=== PATIENT | male | born 1950 | race African-American/Black ===

== ENCOUNTER 2020-01-03 12:21 | Emergency (ER) | payer MEDICARE, OTHER ==
[~2020-01-03] VITALS: Ht 182.9 cm; Wt 100.0 kg
[~2020-01-03 12:21] MED LIST: AMLO5TAB4 PO; ASPI-482 PO; ATOR40TA PO; CARV25TA PO; CLON0.3T PO; CLOP75TA PO; HYDR-2145 PO; IPRA3AMP29 NEB; LATA2.5D3 EACHEYE; LISI-130 PO; OSEL30CA PO; POTA20TA4 PO; TRAM1TAB4 PO; TRAM50TA PO
[2020-01-03 12:59] LABS: BASO % 1 % (0-3); EOS # 0.1 x10^3/uL (0.0-0.7); EOS % 2 % (0-3); HEMATOCRIT 32.8 % (39.0-53.0); HEMOGLOBIN 11.4 g/dL (13.0-17.5); LYMPH # 0.8 x10^3/uL (1.0-4.8); LYMPH % 21 % (24-48); MEAN CORPUSCULAR HEMOGLOBIN 31 pg (25-35); MEAN CORPUSCULAR HGB CONC 35 g/dL (31-37); MEAN CORPUSCULAR VOLUME 89 fL (79-100); MONO # 0.3 x10^3/uL (0.0-1.1); MONO % 9 % (0-9); NEUT # 2.6 x10^3/uL (1.8-7.7); NEUT % 68 % (31-73); PLATELET COUNT 160 x10^3/uL (140-400); RED BLOOD COUNT 3.67 x10^6/uL (4.30-5.70); WHITE BLOOD COUNT 3.8 x10^3/uL (4.0-11.0)
[2020-01-03 13:12] LABS: CALCIUM 8.4 mg/dL (8.5-10.1); CREATININE 1.8 mg/dL (0.7-1.3); GFR 45.5; POTASSIUM 3.3 mmol/L (3.5-5.1)
[2020-01-03 13:13] LABS: PROTHROMBIN TIME PATIENT 14.3 SEC (11.7-14.0)
[2020-01-03 13:19] LABS: ALBUMIN 2.9 g/dL (3.4-5.0); ALBUMIN/GLOBULIN RATIO 0.9 (1.0-1.7); MAGNESIUM 1.8 mg/dL (1.8-2.4); TOTAL BILIRUBIN 0.5 mg/dL (0.2-1.0); TOTAL PROTEIN 6.3 g/dL (6.4-8.2)
[2020-01-03] MEDS ORDERED: POTASSIUM CHLORIDE 20 MEQ TABLET.ER. PO ONE (13:45)
[2020-01-03] MEDS ORDERED: IV NORMAL SALINE 500ML BAG 500 ML IV ONE (13:45)
[2020-01-03 14:00] VITALS: BP 127/72
--- NOTE | 2020-01-03 14:03 | PHYS DOC ---
Past Medical History Past Medical History: CVA, High Cholesterol, Heart Disease, Hypertension, Stroke Additional Past Medical Histor: stroke 10years ago with right sided deficit. Past Surgical History: No Surgical History Smoking Status: Never Smoker Alcohol Use: None Drug Use: None General Adult EDM: Chief Complaint: WEAKNESS/GENERALIZED HPI: HPI: Patient is a 69 year old male who was brought here by EMS from home due to generalized weakness. Patient has a history of stroke, has right-sided residual deficits and slow speech. Patient said for the last few day he did not feel well, feels weak. He has history of hypertension on medication for. Patient said today he was trying to get out of his bed when he stood up he feels weak and lost his balance and fell back onto his bed. No head or neck injury. Patient denies any pain anywhere. His family checked his blood pressure and it was low 80/40. Therefore EMS was called to take him here for evaluation. Patie nt denies any cough or fever, no chest pain, no abdominal pain, no nausea vomiting, no diarrhea. Patient said he had not been eating much lately. Review of Systems: Review of Systems: Constitutional: Denies fever or chills. Positive for generalized weakness Eyes: Denies change in visual acuity. [] HENT: Denies nasal congestion or sore throat. [] Respiratory: Denies cough or shortness of breath. [] Cardiovascular: Denies chest pain or edema. [] GI: Denies abdominal pain, nausea, vomiting, bloody stools or diarrhea. [] : Denies dysuria. [] Musculoskeletal: Denies back pain or joint pain. [] Integument: Denies rash. [] Neurologic: Denies headache, focal weakness or sensory changes. [] Endocrine: Denies polyuria or polydipsia. [] Lymphatic: Denies swollen glands. [] Psychiatric: Denies depression or anxiety. [] Heart Score: Risk Factors: Risk Factors: DM, Current or recent (<one month) smoker, HTN, HLP, family history of CAD, obesity. Risk Scores: Score 0 - 3: 2.5% MACE over next 6 weeks - Discharge Home Score 4 - 6: 20.3% MACE over next 6 weeks - Admit for Clinical Observation Score 7 - 10: 72.7% MACE over next 6 weeks - Early Invasive Strategies Current Medications: Current Medications Medications (Trade) Dose Ordered Sig/Shyla Start Time Stop Time Status Last Admin Dose Admin Potassium Chloride (Klor-Con) 40 meq 1X ONCE 01/03/20 13:45 01/03/20 13:46 DC 01/03/20 13:47 40 MEQ Sodium Chloride 500 ml @ 500 mls/hr 1X ONCE 01/03/20 13:45 01/03/20 14:44 01/03/20 13:39 500 MLS/HR Allergies: Allergies: Allergies Coded Allergies Type Severity Reaction Last Updated Verified No Known Drug Allergies 12/29/15 No Physical Exam: PE: Constitutional: Well developed, well nourished, no acute distress, non-toxic appearance. [] HENT: Normocephalic, atraumatic, bilateral external ears normal, oropharynx dry, no oral exudates, nose normal. [] Eyes: PERRLA, EOMI, conjunctiva normal, no discharge. [] Neck: Normal range of motion, no tenderness, supple, no stridor. [] Cardiovascular:Heart rate regular rhythm, no murmur [] Lungs & Thorax: Bilateral breath sounds clear to auscultation [] Abdomen: Bowel sounds normal, soft, no tenderness, no masses, no pulsatile masses. [] Skin: Warm, dry, no erythema, no rash. [] Back: No tenderness, no CVA tenderness. [] Extremities: No tenderness, no cyanosis, no clubbing, ROM intact, no edema. [] Neurologic: Alert and oriented X 3, right side feels weaker than left side which is chronic. His speech was slow. Psychologic: Affect normal, judgement normal, mood normal. [] Current Patient Data: Labs: Laboratory Tests Test 01/03/20 12:45 White Blood Count 3.8 x10^3/uL (4.0-11.0) L Red Blood Count 3.67 x10^6/uL (4.30-5.70) L Hemoglobin 11.4 g/dL (13.0-17.5) L Hematocrit 32.8 % (39.0-53.0) L Mean Corpuscular Volume 89 fL (79-100) Mean Corpuscular Hemoglobin 31 pg (25-35) Mean Corpuscular Hemoglobin Concent 35 g/dL (31-37) Red Cell Distribution Width 13.0 % (11.5-14.5) Platelet Count 160 x10^3/uL (140-400) Neutrophils (%) (Auto) 68 % (31-73) Lymphocytes (%) (Auto) 21 % (24-48) L Monocytes (%) (Auto) 9 % (0-9) Eosinophils (%) (Auto) 2 % (0-3) Basophils (%) (Auto) 1 % (0-3) Neutrophils # (Auto) 2.6 x10^3/uL (1.8-7.7) Lymphocytes # (Auto) 0.8 x10^3/uL (1.0-4.8) L Monocytes # (Auto) 0.3 x10^3/uL (0.0-1.1) Eosinophils # (Auto) 0.1 x10^3/uL (0.0-0.7) Basophils # (Auto) 0.0 x10^3/uL (0.0-0.2) Prothrombin Time 14.3 SEC (11.7-14.0) H Prothrombin Time INR 1.2 (0.8-1.1) H Activated Partial Thromboplast Time 31 SEC (24-38) Sodium Level 141 mmol/L (136-145) Potassium Level 3.3 mmol/L (3.5-5.1) L Chloride Level 104 mmol/L (98-107) Carbon Dioxide Level 27 mmol/L (21-32) Anion Gap 10 (6-14) Blood Urea Nitrogen 20 mg/dL (8-26) Creatinine 1.8 mg/dL (0.7-1.3) H Estimated GFR (Cockcroft-Gault) 45.5 BUN/Creatinine Ratio 11 (6-20) Glucose Level 144 mg/dL (70-99) H Calcium Level 8.4 mg/dL (8.5-10.1) L Magnesium Level 1.8 mg/dL (1.8-2.4) Total Bilirubin 0.5 mg/dL (0.2-1.0) Aspartate Amino Transferase (AST) 14 U/L (15-37) L Alanine Aminotransferase (ALT) 10 U/L (16-63) L Alkaline Phosphatase 66 U/L (46-116) Troponin I Quantitative < 0.017 ng/mL (0.000-0.055) Total Protein 6.3 g/dL (6.4-8.2) L Albumin 2.9 g/dL (3.4-5.0) L Albumin/Globulin Ratio 0.9 (1.0-1.7) L Laboratory Tests 01/03/20 12:45 Laboratory Tests 01/03/20 12:45 Vital Signs: Vital Signs Date Time Temp Pulse Resp B/P (MAP) Pulse Ox O2 Delivery O2 Flow Rate FiO2 01/03/20 12:51 72 16 97 01/03/20 12:30 98.8 95/51 (66) Room Air 98.8 EKG: EKG: EKG was done at 1229 heart rate of 72 bpm, normal sinus rhythm, no ST segment elevation [] Radiology/Procedures: Radiology/Procedures: [] Course & Med Decision Making: Course & Med Decision Making Pertinent Labs and Imaging studies reviewed. (See chart for details) Patient is a 69-year-old male who was found to be dehydrated, potassium level was low. Patient was given 1 L normal saline in the ER, 40 mEq of potassium. Patient was doing much better, patient was discharged home in stable condition. Dragon Disclaimer: Dragon Disclaimer: This electronic medical record was generated, in whole or in part, using a voice recognition dictation system. Departure Departure Impression: Primary Impression: Dehydration Additional Impression: Hypokalemia Disposition: 01 DC HOME SELF CARE/HOMELESS Condition: IMPROVED Referrals: ZENA AUSTIN MD (PCP) FOLLOW UP WITH YOUR DOCTOR NEXT WEEK FOR REEVALUATION. Patient Instructions: Dehydration, Adult, Hypokalemia Additional Instructions: Thank you for visiting our Emergency Department. We appreciate you trusting us with your care. If any additional problems come up don't hesitate to return to visit us. Please follow up with your primary care provider so they can plan additional care if needed and know about the problem that you had. If symptoms worsen come back to the Emergency Department. Any concerning symptoms that start such as chest pain, shortness of air, weakness or numbness on one side of the body, running high fevers or any other concerning symptoms return to the ER. AUDREY MAJOR DO Jan 03, 2020 14:02
== END 2020-01-03 14:10 | disposition home or self-care (01) ==
LOC: ER 12:21
DX: E86.0 Dehydration (principal); E87.6 Hypokalemia; I11.9 Hypertensive heart disease without heart failure; E78.00 Pure hypercholesterolemia, unspecified; Z86.73 Personal history of transient ischemic attack (TIA), and cerebral infarction without residual deficits
CPT/HCPCS: 36415; 80053; 83735; 84484; 85025; 85610; 85730; 96360; 99284; J7040

== ENCOUNTER 2020-06-03 18:09 | Emergency (ER) | payer MEDICARE ==
[~2020-06-03] VITALS: Ht 165.1 cm; Wt 89.0 kg
[2020-06-03 18:23] VITALS: BP 141/69
[2020-06-03] MEDS ORDERED: IV NORMAL SALINE 1000ML BAG 1,000 ML IV SCH (19:30)
--- NOTE | 2020-06-03 19:59 | EKG ---
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
[2020-06-03 20:03] LABS: BILIRUBIN,URINE SMALL (NEG); CLARITY,URINE CLEAR; COLOR,URINE AMBER; NITRITE,URINE POSITIVE (NEG); PH,URINE 6.5 (<5.0-8.0); PROTEIN,URINE 30 mg/dL (NEG-TRACE)
[2020-06-03 20:03] LABS: BASO % 0 % (0-3); EOS % 1 % (0-3); HEMATOCRIT 37.9 % (39.0-53.0); HEMOGLOBIN 13.2 g/dL (13.0-17.5); LYMPH # 0.6 x10^3/uL (1.0-4.8); LYMPH % 15 % (24-48); MEAN CORPUSCULAR HEMOGLOBIN 32 pg (25-35); MEAN CORPUSCULAR HGB CONC 35 g/dL (31-37); MEAN CORPUSCULAR VOLUME 91 fL (79-100); MONO # 0.4 x10^3/uL (0.0-1.1); MONO % 9 % (0-9); NEUT # 3.3 x10^3/uL (1.8-7.7); NEUT % 76 % (31-73); PLATELET COUNT 164 x10^3/uL (140-400); RED BLOOD COUNT 4.18 x10^6/uL (4.30-5.70); RED CELL DISTRIBUTION WIDTH 13.9 % (11.5-14.5); WHITE BLOOD COUNT 4.4 x10^3/uL (4.0-11.0)
[2020-06-03 20:10] LABS: RBC,URINE 0 /HPF (0-2); WBC,URINE 0 /HPF (0-4)
[2020-06-03 20:11] LABS: BACTERIA,URINE FEW /HPF (0-FEW)
[2020-06-03 20:25] LABS: CALCIUM 8.3 mg/dL (8.5-10.1); CREATININE 1.3 mg/dL (0.7-1.3); POTASSIUM 3.3 mmol/L (3.5-5.1)
--- NOTE | 2020-06-03 20:26 | RAD ---
Examination: Frontal view of the abdomen HISTORY: History of abdominal pain COMPARISON: None available Findings/ impression: Mild air distended bowel loops identified in the mid abdomen could be ileus or obstruction. Moderate amount of stool identified in the rectum could be constipation or fecal impaction. Consider CT for fu rther evaluation. Electronically signed by: Benitez Wynne MD (06/03/2020 8:24 PM) [id number]
[2020-06-03 20:39] LABS: ALBUMIN 3.6 g/dL (3.4-5.0); ALBUMIN/GLOBULIN RATIO 1.2 (1.0-1.7); TOTAL PROTEIN 6.7 g/dL (6.4-8.2)
--- NOTE | 2020-06-03 20:40 | PHYS DOC ---
Past Medical History Past Medical History: CVA, High Cholesterol, Heart Disease, Hypertension, Stroke Additional Past Medical Histor: stroke 10years ago with right sided deficit. Past Surgical History: No Surgical History Smoking Status: Never Smoker Alcohol Use: None Drug Use: None Adult General Chief Complaint Chief Complaint: WEAKNESS/GENERALIZED HPI HPI Patient is a 70 year old male with a past history of CVA, hypertension hyperlipidemia presenting the emergency department complaint of new onset weakness. Patient states that this morning he woke up and he was having difficulty standing because he is having weakness in bilateral lower extremities. Patient denies weakness in 1 to her side. States that he has been intermittent since that time. Denies any fever or chills. Denies any chest pain or shortness of breath Review of Systems Review of Systems Constitutional: Denies fever or chills [] Eyes: Denies change in visual acuity, redness, or eye pain [] HENT: Denies nasal congestion or sore throat [] Respiratory: Denies cough or shortness of breath [] Cardiovascular: No additional information not addressed in HPI [] GI: Denies abdominal pain, nausea, vomiting, bloody stools or diarrhea [] : Denies dysuria or hematuria [] Musculoskeletal: Denies back pain or joint pain [] Integument: Denies rash or skin lesions [] Neurologic: Denies headache, focal weakness or sensory changes [] Endocrine: Denies polyuria or polydipsia [] All other systems were reviewed and found to be within normal limits, except as documented in this note. Current Medications Current Medications Current Medications Medications (Trade) Dose Ordered Sig/Shyla Start Time Stop Time Status Last Admin Dose Admin Sodium Chloride 1,000 ml @ 1,000 mls/hr Q1H 06/03/20 19:30 06/03/20 20:29 DC 06/03/20 19:50 1,000 MLS/HR Allergies Allergies Allergies Coded Allergies Type Severity Reaction Last Updated Verified No Known Drug Allergies 12/29/15 No Physical Exam Physical Exam Constitutional: Well developed, well nourished, no acute distress, non-toxic appearance. [] HENT: Normocephalic, atraumatic, bilateral external ears normal, oropharynx moist, no oral exudates, nose normal. [] Eyes: PERRLA, EOMI, conjunctiva normal, no discharge. [] Neck: Normal range of motion, no tenderness, supple, no stridor. [] Cardiovascular:Heart rate regular rhythm, no murmur [] Lungs & Thorax: Bilateral breath sounds clear to auscultation [] Abdomen: Bowel sounds normal, soft, no tenderness, no masses, no pulsatile masses. [] Skin: Warm, dry, no erythema, no rash. [] Back: No tenderness, no CVA tenderness. [] Extremities: No tenderness, no cyanosis, no clubbing, ROM intact, no edema. [] Neurologic: Alert and oriented X 3, normal motor function, normal sensory function, no focal deficits noted. [] Psychologic: Affect normal, judgement normal, mood normal. [] Current Patient Data Vital Signs Vital Signs Date Time Temp Pulse Resp B/P (MAP) Pulse Ox O2 Delivery O2 Flow Rate FiO2 06/03/20 18:23 98.2 76 20 141/69 (93) 98 Room Air 98.2 Lab Values Laboratory Tests Test 06/03/20 19:41 06/03/20 19:48 Urine Collection Type Unknown Urine Color [place] Urine Clarity Clear Urine pH 6.5 (<5.0-8.0) Urine Specific [place] 1.020 (1.000-1.030) Urine Protein 30 mg/dL (NEG-TRACE) Urine Glucose (UA) Negative mg/dL (NEG) Urine Ketones (Stick) 15 mg/dL (NEG) Urine Blood Negative (NEG) Urine Nitrite Positive (NEG) Urine Bilirubin Small (NEG) Urine Urobilinogen Dipstick 4.0 mg/dL (0.2 mg/dL) Urine Leukocyte Esterase Negative (NEG) Urine RBC 0 /HPF (0-2) Urine WBC 0 /HPF (0-4) Urine Squamous Epithelial Cells Occ /LPF Urine Bacteria Few /HPF (0-FEW) White Blood Count 4.4 x10^3/uL (4.0-11.0) Red Blood Count 4.18 x10^6/uL (4.30-5.70) L Hemoglobin 13.2 g/dL (13.0-17.5) Hematocrit 37.9 % (39.0-53.0) L Mean Corpuscular Volume 91 fL (79-100) Mean Corpuscular Hemoglobin 32 pg (25-35) Mean Corpuscular Hemoglobin Concent 35 g/dL (31-37) Red Cell Distribution Width 13.9 % (11.5-14.5) Platelet Count 164 x10^3/uL (140-400) Neutrophils (%) (Auto) 76 % (31-73) H Lymphocytes (%) (Auto) 15 % (24-48) L Monocytes (%) (Auto) 9 % (0-9) Eosinophils (%) (Auto) 1 % (0-3) Basophils (%) (Auto) 0 % (0-3) Neutrophils # (Auto) 3.3 x10^3/uL (1.8-7.7) Lymphocytes # (Auto) 0.6 x10^3/uL (1.0-4.8) L Monocytes # (Auto) 0.4 x10^3/uL (0.0-1.1) Eosinophils # (Auto) 0.0 x10^3/uL (0.0-0.7) Basophils # (Auto) 0.0 x10^3/uL (0.0-0.2) Sodium Level 144 mmol/L (136-145) Potassium Level 3.3 mmol/L (3.5-5.1) L Chloride Level 108 mmol/L (98-107) H Carbon Dioxide Level 29 mmol/L (21-32) Anion Gap 7 (6-14) Blood Urea Nitrogen 14 mg/dL (8-26) Creatinine 1.3 mg/dL (0.7-1.3) Estimated GFR (Cockcroft-Gault) 66.0 BUN/Creatinine Ratio 11 (6-20) Glucose Level 89 mg/dL (70-99) Calcium Level 8.3 mg/dL (8.5-10.1) L Total Bilirubin 1.0 mg/dL (0.2-1.0) Aspartate Amino Transferase (AST) 18 U/L (15-37) Alanine Aminotransferase (ALT) 11 U/L (16-63) L Alkaline Phosphatase 61 U/L (46-116) Creatine Kinase 258 U/L (39-308) Total Protein 6.7 g/dL (6.4-8.2) Albumin 3.6 g/dL (3.4-5.0) Albumin/Globulin Ratio 1.2 (1.0-1.7) Lipase 128 U/L (73-393) Laboratory Tests 06/03/20 19:48 Laboratory Tests 06/03/20 19:48 EKG EKG [] Radiology/Procedures Radiology/Procedures [] Course & Med Decision Making Course & Med Decision Making Pertinent Labs and Imaging studies reviewed. (See chart for details) 70m male nonspecific weakness in bilateral lower extremities less likely CVA versus concern for sepsis or other generalized metabolic disorder. Labs reviewed and patient noted to have nitrates in the urine consistent with a urinary tract infection. CT scan of the head negative for any significant acute intracranial abnormalities. At this time will discharge home with course of antibiotics for urinary tract infection as is likely the cause of the patient's weakness Dragon Disclaimer Dragon Disclaimer This electronic medical record was generated, in whole or in part, using a voice recognition dictation system. Departure Departure Impression: Primary Impression: UTI (urinary tract infection) Disposition: HOME / SELF CARE / HOMELESS Condition: GOOD Referrals: ZENA AUSTIN MD (PCP) Patient Instructions: Urinary Tract Infection Additional Instructions: EMERGENCY DEPARTMENT GENERAL DISCHARGE INSTRUCTIONS Thank you for coming to [facility] Emergency Department (ED) today and trusting us with you care. We trust that you had a positive experience in our Emergency Department. If you wish to speak to the department management, you may call the Director at [phone]. YOUR FOLLOW UP INSTRUCTIONS ARE FOLLOWS: 1. Do you have a private Doctor? If you do not have a private doctor, please ask for a resource list of physicians or clinics that may be able to assist you with follow up care. 2. The Emergency Physicain has interpreted your x-rays. The X-Ray specialist will also review them. If there is a change in the findings, you will be notified in 48 hours when at all possible. 3. A lab test or culture has been done, your results will be reviewed and you will be notified if you need a change in treatment. ADDITIONAL INSTRUCTIONS AND INFORMATION: 1. Your care today has been supervised by a physician who is specially trained in emergency care. Many problems require more than one evaluation for a complete diagnosis and treatment. We recommend that you schedule your follow up appointment as recommended to ensure complete treatment of you illness or injury. If you are unable to obtain follow up care and continue to have a problem, or if your condition worsens, we recommend that you return to the ED. 2. We are not able to safely determine your condition over the phone nor are we able to give sound medical advice over the phone. For these safety reasons, if you call for medical advice we will ask you to come to the ED for further evaluation. 3. If you have any questions regarding these discharge instructions please call the ED at [phone]. SAFETY INFORMATION: In the interest of safety, wellness, and injury prevention; we encourage you to wear your sealbelt, if you smoke; quite smoking, and we encourage family to use a protective helmet for bicycling and other sporting events that present an increased risk for head injury. IF YOUR SYMPTOMS WORSEN OR NEW SYMPTOMS DEVELOP, OR YOU HAVE CONCERNS ABOUT YOUR CONDITION; OR IF YOUR CONDITION WORSENS WHILE YOU ARE WAITING FOR YOUR FOLLOW UP APPOINTMENT; EITHER CONTACT YOUR PRIMARY CARE DOCTOR, THE PHYSICIAN WHOSE NAME AND NUMBER YOU WERE GIVEN, OR RETURN TO THE ED IMMEDIATELY. Scripts Cephalexin (CEPHALEXIN) 500 Mg Capsule 1 CAP PO QID for 10 Days, #40 CAP Prov: MIKE FERNANDEZ MD 06/03/20 MIKE FERNANDEZ MD Jun 03, 2020 20:40
--- NOTE | 2020-06-03 21:36 | RAD ---
CT HEAD INDICATION: Reason: weakness / Spl. Instructions: / History: COMPARISON: 01/31/2019. Exposure: One or more of the following individualized dose reduction techniques were utilized for thi s examination: 1. Automated exposure control 2. Adjustment of the mA and/or kV according to patient size 3. Use of iterative reconstruction technique TECHNIQUE: 5 mm contiguous axial images were obtained from the skull base to the vertex in both bone and soft tissue algorithm. FINDINGS: Mild bilateral periventricular white matter hypodensities likely chronic small ischemic disease. No evidence of acute intracranial hemorrhage. No extra-axial fluid collections. No mass effect or midline shift. Ventricular size is appropriate. Basal cisterns are patent. No fractures identified.Stanton-white differentiation is preserved.Globes and orbits are within normal l imits. Paranasal sinuses and mastoid air cells are clear. IMPRESSION: No acute intracranial findings. Electronically signed by: Benitez Wynne MD (06/03/2020 9:33 PM) [id number]
[2020-06-03] MEDS ORDERED: CEPH500C PO (22:01)
== END 2020-06-03 22:46 | disposition home or self-care (01) ==
LOC: ER 18:09
DX: N39.0 Urinary tract infection, site not specified (principal); R53.1 Weakness; E78.00 Pure hypercholesterolemia, unspecified; I10 Essential (primary) hypertension; I25.2 Old myocardial infarction; Z86.73 Personal history of transient ischemic attack (TIA), and cerebral infarction without residual deficits; Z98.890 Other specified postprocedural states
CPT/HCPCS: 36415; 70450; 74018; 80053; 81001; 82550; 83690; 85025; 93005; 96360; 99285; J7030

== ENCOUNTER 2020-09-11 17:12 | Observation (INO) | payer MEDICARE ==
[~2020-09-11] VITALS: Ht 167.6 cm; Wt 81.4 kg
[~2020-09-11 17:12] MED LIST changes: +CEPH500C PO
--- NOTE | 2020-09-11 18:18 | RAD ---
Exam: Chest one view INDICATION: Generalized weakness TECHNIQUE: Frontal view of the chest Comparisons: 01/31/2019 FINDINGS: Heart is mildly enlarged. Pulmonary vessels are within normal limits. The lung and pleural spaces are clear. IMPRESSION: No acute cardiopulmonary process. Electronically signed by: Ellen Watson MD (09/11/2020 6:16 PM) AYESHA
[2020-09-11 18:19] LABS: BASO % 0 % (0-3); EOS # 0.1 x10^3/uL (0.0-0.7); EOS % 1 % (0-3); HEMATOCRIT 38.4 % (39.0-53.0); HEMOGLOBIN 12.8 g/dL (13.0-17.5); LYMPH # 0.7 x10^3/uL (1.0-4.8); LYMPH % 10 % (24-48); MEAN CORPUSCULAR HEMOGLOBIN 31 pg (25-35); MEAN CORPUSCULAR HGB CONC 33 g/dL (31-37); MEAN CORPUSCULAR VOLUME 93 fL (79-100); MONO # 0.4 x10^3/uL (0.0-1.1); MONO % 6 % (0-9); NEUT # 5.5 x10^3/uL (1.8-7.7); NEUT % 83 % (31-73); PLATELET COUNT 152 x10^3/uL (140-400); RED BLOOD COUNT 4.14 x10^6/uL (4.30-5.70); WHITE BLOOD COUNT 6.7 x10^3/uL (4.0-11.0)
--- NOTE | 2020-09-11 18:25 | EKG ---
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
--- NOTE | 2020-09-11 18:25 | EKG ---
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
[2020-09-11 18:27] LABS: ALBUMIN 2.7 g/dL (3.4-5.0); ALBUMIN/GLOBULIN RATIO 1.1 (1.0-1.7); GFR 89.4; MAGNESIUM 1.6 mg/dL (1.8-2.4); TOTAL BILIRUBIN 0.9 mg/dL (0.2-1.0); TOTAL PROTEIN 5.2 g/dL (6.4-8.2)
[2020-09-11 18:30] LABS: POTASSIUM 2.5 mmol/L (3.5-5.1)
[2020-09-11] MEDS ORDERED: MAGNESIUM SULFATE 2GM 50 ML IV ONE (18:45)
[2020-09-11] MEDS ORDERED: POTASSIUM CHLORIDE 20MEQ 100 ML IV ONE (18:45)
[2020-09-11] MEDS ORDERED: POTASSIUM CHLORIDE 20 MEQ TABLET.ER. PO ONE (18:45)
--- NOTE | 2020-09-11 18:47 | PHYS DOC ---
Past Medical History Past Medical History: CVA, High Cholesterol, Heart Disease, Hypertension, Stroke Additional Past Medical Histor: stroke 10years ago with right sided deficit. 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 The states that the left leg was giving out on him. Patient's states that his legs are more swollen than usual. Patient's states that he has been off of his " water pills" for the past 2 months. Patient fell again today but did not hit his head and states ever since the fall today he has not been wanting to use his left lower leg. Patient denies any kind of pain. He states that he just generalized weak. Patient denies chest pain, shortness of air, abdominal pain, nausea, vomiting, diarrhea, fever, cough, dizziness, headache, numbness or tingling. He has a history of hypertension, high cholesterol, stroke, heart disease. 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 [] Eyes: Denies change in visual acuity. [] HENT: Denies nasal congestion or sore throat. [] Respiratory: Denies cough or shortness of breath. [] Cardiovascular: Denies chest pain or + bilateral lower leg edema. [] GI: Denies abdominal pain, nausea, vomiting, bloody stools or diarrhea. [] : Denies dysuria. [] Musculoskeletal: Denies back pain or joint pain. + Frequent falls [] Integument: Denies rash. [] Neurologic: Denies headache, focal weakness or sensory changes. + Left leg weakness [] Endocrine: Denies polyuria or polydipsia. [] Lymphatic: Denies swollen glands. [] Psychiatric: Denies depression or anxiety. [] (JOSE C[employer]OSO [employer]ACH[employer] TENDER) Heart Score: C/O Chest Pain: No HEART Score for Chest Pain: HEART Score for Chest Pain Response (Comments) Value History Slighlty/Non-Suspicious 0 ECG Nonspecific Repolarizatio 1 Age > 65 2 Risk Factors 1 or 2 Risk Factors 1 Troponin < Normal Limit 0 Total 4 Risk Factors: Risk Factors: DM, Current or recent (<one month) smoker, HTN, HLP, family history of CAD, obesity. Risk Scores: Score 0 - 3: 2.5% MACE over next 6 weeks - Discharge Home Score 4 - 6: 20.3% MACE over next 6 weeks - Admit for Clinical Observation Score 7 - 10: 72.7% MACE over next 6 weeks - Early Invasive Strategies ([facility],JOSE M WO[employer] M[employer]ING MACHINE TENDER) Allergies: Allergies: Allergies Coded Allergies Type Severity Reaction Last Updated Verified No Known Drug Allergies 12/29/15 No ([facility],JOSE M WO[employer] M[employer]ING MACHINE TENDER) Physical Exam: PE: Constitutional: Well developed, well nourished, no acute distress, non-toxic appearance. [] HENT: Normocephalic, atraumatic, bilateral external ears normal, oropharynx moist, no oral exudates, nose normal. [] Eyes: PERRLA, EOMI, conjunctiva normal, no discharge. [] Neck: Normal range of motion, no tenderness, supple, no stridor. [] Cardiovascular:Heart rate regular rhythm, no murmur [] Lungs & Thorax: Bilateral breath sounds clear to auscultation [] Abdomen: Bowel sounds normal, soft, no tenderness, no masses, no pulsatile masses. [] Skin: Warm, dry, no erythema, no rash. [] Back: No tenderness, no CVA tenderness. [] Extremities: No tenderness, no cyanosis, no clubbing, left ROM not intact, 3+ edema. [] Neurologic: Alert and oriented X 3, normal motor function, normal sensory function, no focal deficits noted. [] Psychologic: Affect normal, judgement normal, mood normal. [] ([facility],JOSE M [employer] M[employer]ING MACHINE TENDER) Current Patient Data: Labs: Laboratory Tests Test 09/11/20 17:55 White Blood Count 6.7 x10^3/uL (4.0-11.0) Red Blood Count 4.14 x10^6/uL (4.30-5.70) L Hemoglobin 12.8 g/dL (13.0-17.5) L Hematocrit 38.4 % (39.0-53.0) L Mean Corpuscular Volume 93 fL (79-100) Mean Corpuscular Hemoglobin 31 pg (25-35) Mean Corpuscular Hemoglobin Concent 33 g/dL (31-37) Red Cell Distribution Width 13.0 % (11.5-14.5) Platelet Count 152 x10^3/uL (140-400) Neutrophils (%) (Auto) 83 % (31-73) H Lymphocytes (%) (Auto) 10 % (24-48) L Monocytes (%) (Auto) 6 % (0-9) Eosinophils (%) (Auto) 1 % (0-3) Basophils (%) (Auto) 0 % (0-3) Neutrophils # (Auto) 5.5 x10^3/uL (1.8-7.7) Lymphocytes # (Auto) 0.7 x10^3/uL (1.0-4.8) L Monocytes # (Auto) 0.4 x10^3/uL (0.0-1.1) Eosinophils # (Auto) 0.1 x10^3/uL (0.0-0.7) Basophils # (Auto) 0.0 x10^3/uL (0.0-0.2) Sodium Level 144 mmol/L (136-145) Potassium Level 2.5 mmol/L (3.5-5.1) *L Chloride Level 111 mmol/L (98-107) H Carbon Dioxide Level 23 mmol/L (21-32) Anion Gap 10 (6-14) Blood Urea Nitrogen 9 mg/dL (8-26) Creatinine 1.0 mg/dL (0.7-1.3) Estimated GFR (Cockcroft-Gault) 89.4 BUN/Creatinine Ratio 9 (6-20) Glucose Level 92 mg/dL (70-99) Calcium Level 7.0 mg/dL (8.5-10.1) L Magnesium Level 1.6 mg/dL (1.8-2.4) L Total Bilirubin 0.9 mg/dL (0.2-1.0) Aspartate Amino Transferase (AST) 26 U/L (15-37) Alanine Aminotransferase (ALT) 16 U/L (16-63) Alkaline Phosphatase 58 U/L (46-116) Total Protein 5.2 g/dL (6.4-8.2) L Albumin 2.7 g/dL (3.4-5.0) L Albumin/Globulin Ratio 1.1 (1.0-1.7) Laboratory Tests 09/11/20 17:55 Laboratory Tests 09/11/20 17:55 Vital Signs: Vital Signs Date Time Temp Pulse Resp B/P (MAP) Pulse Ox O2 Delivery O2 Flow Rate FiO2 09/11/20 17:28 79 18 159/68 (98) 96 Room Air 09/11/20 17:19 98.2 98.2 (JOSE CARDOSO APRN) EKG: EK and read by Dr. Dougherty is sinus rhythm and no STEMI (JOSE CARDOSO APRN) Radiology/Procedures: Radiology/Procedures: [] Impression: [facility] [address] [place] [address] IMAGING REPORT Signed PATIENT: JAYE NAVARRETE HACCOUNT: [id number] : 1950 LOCATION: ER AGE: 70 SEX: M EXAM STATUS: PRE ER ORD. PHYSICIAN: JOSE CARDOSO APRN REASON: generalized weakness PROCEDURE: PORTABLE CHEST 1V Exam: Chest one view INDICATION: Generalized weakness TECHNIQUE: Frontal view of the chest Comparisons: 01/31/2019 FINDINGS: Heart is mildly enlarged. Pulmonary vessels are within normal limits. The lung and pleural spaces are clear. IMPRESSION: No acute cardiopulmonary process. Electronically signed by: Ellen Farris MD (09/11/2020 6:16 PM) [facility] DICTATED and SIGNED BY: ELLEN FARRIS MD DATE: 09/11/20 [id number] 0 (JOSE CARDOSO APRN) Course & Med Decision Making: Course & Med Decision Making Pertinent Labs and Imaging studies reviewed. (See chart for details) See HPI. Alert and oriented x4. Ambulatory steady gait. Speaks in full clear sentences. Patient is vaccinated. Lungs are clear in upper lobes and diminished in lower lobes. Abdomen soft and nontender. Bilateral lower leg edema 3+. Chest x-ray is clear. I ordered magnesium and potassium for the patient. It was marked he is admitted to Dr. Austin [] (JOSE CARDOSO APRN) Dragon Disclaimer: Dragon Disclaimer: This electronic medical record was generated, in whole or in part, using a voice recognition dictation system. (JOSE CARDOSO APRN) Departure Departure Impression: Primary Impression: Hypokalemia Additional Impressions: Hypomagnesemia Weakness Frequent falls Disposition: ADMITTED INPATIENT Admitting Physician: Bertha Austin (JOSE CARDOSO APRN) Condition: STABLE Referrals: BERTHA AUSTIN MD (PCP) Attending Signature Attending Signature I have reviewed the PA/MEDICINE AND HEALTH SERVICE MANAGER's note and plan of care. I was available for consultation as needed during the patient's visit in the emergency department. I agree with the clinical impression, plan, and disposition. (SCOTT AVALOS DO) JOSE CARDOSO APRN Sep 11, 2020 18:47 SCOTT AVALOS DO Sep 11, 2020 22:55
--- NOTE | 2020-09-11 18:55 | RAD ---
Exam: Pelvis with bilateral hips INDICATION: Fall, heart the left legs TECHNIQUE: Frontal view of pelvis with bilateral frog-leg lateral views of the hips. Comparisons: None FINDINGS: Mild osteoarthritic change at the hip joints bilaterally greater on the left. No acute fracture is se en. Bone mineralization is normal. Large amount stool noted at the rectum. IMPRESSION: No acute osseous abnormality identified. If the patient is acutely unable to bear weight MRI to rule out occult hip fracture is recommended. Electronically signed by: Ellen Watson MD (09/11/2020 6:53 PM) [facility]
--- NOTE | 2020-09-11 19:28 | RAD ---
Exam: CT head INDICATION: Weakness TECHNIQUE: Sequential axial images through the head were obtained without the administration of IV co ntrast. Exposure: One or more of the following in the visualized dose reduction techniques were utilized for this examination: 1. Automated exposure control 2. Adjustment of the MA and/or KV according to patient size 3. Use of iterative of reconstructive technique Comparisons: 06/03/2020 FINDINGS: No focal parenchymal lesion or hemorrhage is identified. There is no midline shift or sulcal effaceme nt. Patchy evidence in the periventricular white matter, similar to prior. No acute vascular territory in farction is identified. Stanton-white distinction is preserved. The ventricular system is within normal limits without compression hydrocephalus. The basal cisterns are well maintained. The visualized portions of the paranasal sinuses and mastoid air cells are well-pneumatized. No acute fractures. IMPRESSION: No acute intracranial abnormality. Electronically signed by: Ellen Watson MD (09/11/2020 7:26 PM) [facility]
[2020-09-11 20:48] LABS: BILIRUBIN,URINE NEGATIVE (NEG); CLARITY,URINE CLEAR; COLOR,URINE YELLOW; NITRITE,URINE NEGATIVE (NEG); PH,URINE 7.5 (<5.0-8.0); PROTEIN,URINE NEGATIVE (NEG-TRACE); UROBILINOGEN,URINE 0.2 mg/dL (0.2 mg/dL)
[2020-09-11 20:53] LABS: BACTERIA,URINE 0 /HPF (0-FEW); RBC,URINE OCC /HPF (0-2); WBC,URINE OCC /HPF (0-4)
--- NOTE | 2020-09-11 22:15 | NUR ---
[id number] Pt arrival to unit via ER cart at this time. Pt stated he was unable to walk or transfer his self from bed to bed by scooting over on his own. Pt transferred to unit bed with multiple staff help and max assist. Pt oriented to unit settings and routines and plan of care. Items and call light in reach. Admission questions completed. contacted for prn pain medication for left leg pain pt is complaining of. Pt states his left leg has hurt since he fell a few days ago prior to admission.
[2020-09-11 22:24] VITALS: BP 175/93
[2020-09-11] MEDS ORDERED: HYDROcodone/APAP 5/325MG 1 TAB TABLET PO PRN (23:15)
[2020-09-11] MEDS: LISINOPRIL 20 MG TABLET PO SCH (23:34)
[2020-09-11] MEDS: ATORVASTATIN CALCIUM 40 MG TABLET. PO SCH (23:34)
[2020-09-11] MEDS: LATANOPROST 0.005% OPHTH SOLUTION 2.5ML BOTTLE. OU SCH (23:35)
[2020-09-11] MEDS: cloNIDine HCL 0.3 MG TABLET PO SCH (23:35)
[2020-09-12] VITALS (7 sets, daily range): BP systolic 89–145; BP diastolic 43–84
[2020-09-12] MEDS: CLOPIDOGREL BISULFATE 75 MG TABLET PO SCH (06:13)
[2020-09-12 06:52] LABS: ALBUMIN 2.7 g/dL (3.4-5.0); ALBUMIN/GLOBULIN RATIO 0.9 (1.0-1.7); CALCIUM 7.9 mg/dL (8.5-10.1); CREATININE 1.3 mg/dL (0.7-1.3); POTASSIUM 3.1 mmol/L (3.5-5.1); TOTAL BILIRUBIN 0.7 mg/dL (0.2-1.0); TOTAL PROTEIN 5.7 g/dL (6.4-8.2)
[2020-09-12 07:03] LABS: CHOLESTEROL/HDL RATIO 3.4
[2020-09-12] MEDS: IPRATRPIUM/ALBUTEROL 0.5/2.5MG 3 ML NEBU. NEB SCH ×4 (07:45→21:53)
[2020-09-12] MEDS ORDERED: POTASSIUM CHLORIDE 20 MEQ TABLET.ER. PO ONE ×3 (08:15→16:45)
--- NOTE | 2020-09-12 08:57 | PDOC ---
Provider Note Date of Service: DATE: 09/12/20 TIME: 08:56 Provider Note Pt seen.H&P dictated.#[id number]. Justifications for Admission Other Justification ZENA AUSTIN MD Sep 12, 2020 08:57
[2020-09-12] MEDS: cloNIDine HCL 0.3 MG TABLET PO SCH ×3 (09:28→21:00)
[2020-09-12] MEDS: LISINOPRIL 20 MG TABLET PO SCH (09:29)
[2020-09-12] MEDS: POTASSIUM CHLORIDE 20 MEQ TABLET.ER. PO SCH (09:29)
[2020-09-12] MEDS: ASPIRIN ENTERIC COATED 81 MG TABLET.DR. PO SCH (09:29)
[2020-09-12] MEDS: hydroCHLOROthiazide 25 MG TABLET PO SCH (09:29)
[2020-09-12] MEDS ORDERED: methylPREDNISolone ACETATE 40 MG/ML VIAL. IM ONE (09:30)
[2020-09-12] MEDS ORDERED: BUPIVACAINE MPF 0.25% 10 ML VIAL. IJ ONE (09:30)
[2020-09-12] MEDS: CARVEDILOL 12.5 MG TABLET. PO SCH ×2 (09:30→17:07)
[2020-09-12] MEDS: ENOXAPARIN 40 MG/0.4 ML SYRINGE. SQ SCH (09:33)
--- NOTE | 2020-09-12 09:38 | HP ---
ADMIT DATE: 09/11/2020 LOCATION: Room 211. REASON FOR ADMISSION TO THE HOSPITAL: Weakness, hypokalemia, history of previous stroke. HISTORY OF PRESENT ILLNESS: The patient is a 70-year-old male patient who has a history of hypertension, previous stroke, mostly ambulates with a walker and he has been feeling weak with pain in the left leg, not able to get up, denies any injuries to that. The patient was brought to the hospital and x-ray did not show any fracture. CT scan negative for stroke and his potassium was low at 2.5. The patient was given IV potassium and fluids and admitted to the hospital. PAST MEDICAL HISTORY: 1. Hypertension. 2. Hyperlipidemia. 3. Stroke. 4. Chronic kidney disease. PAST SURGICAL HISTORY: None. ALLERGIES: None. MEDICATIONS: The patient is on: 1. Amlodipine 5 mg daily. 2. Aspirin 81 mg daily. 3. Atorvastatin 40 mg daily. 4. Coreg 25 mg twice a day. 5. Clonidine 0.3 three times a day. 6. Plavix 75 mg daily. 7. Hydrochlorothiazide 25 daily. 8. DuoNeb 4 times daily. 9. Lisinopril 40 mg daily. 10. Potassium 20 mEq daily. The patient's says he is not taking potassium lately. 11. 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 SOCIAL HISTORY: Denies smoking, alcohol, drug abuse. The patient is at walker and wheelchair level. REVIEW OF SYSTEMS: Denies any chest pain, shortness of breath. Complains of pain in the leg with generalized weakness. Denies any problems with urination. Rest of the 14 systems reviewed are negative. PHYSICAL EXAMINATION: VITAL SIGNS: At the time of admission shows temperature 98, pulse 81, respirations 18, blood pressure 167/76, 97 on room air. HEENT: Head is atraumatic. Pupils equal. Oral cavity, no congestion. NECK: Supple. Thyroid not enlarged. JVD not elevated. CHEST: Symmetrical. CARDIOVASCULAR: S1, S2. LUNGS: Clear to auscultation. ABDOMEN: Soft. No mass palpable. EXTERNAL GENITALIA: No Vásquez. Rectal deferred. EXTREMITIES: The patient has pain in the left leg, not able to lift off the bed. The patient had a previous right stroke, but is able to move the right leg more than the left leg. Cranial nerves intact. Upper extremities are normal. IMAGING DATA: CT scan shows no acute abnormality. X-ray of the pelvis, no fracture. Chest x-ray, negative. LABORATORY DATA: Shows a white count of 6, hemoglobin 13, platelets 152. Electrolytes show sodium 144, potassium 2.5, chloride 111, bicarbonate 23, anion gap 10, BUN 9, creatinine 1.0, glucose 92, magnesium 1.6. LFTs normal. Troponin was negative. BNP 1047. Urine is negative. FINAL IMPRESSION: 1. Hypokalemia. 2. Weakness. 3. Left leg pain, possible sciatica. 4. History of previous stroke. 5. Hypertension. 6. Hyperlipidemia. PLAN: At this time, the patient was admitted to the hospital. Potassium was being replaced from 2.5, went up to 3.1. X-rays show no fractures. We will consult rehab, PT, OT and add potassium to the daily regimen and see if it improves. JASBIR DR: Niyah TID: [id number]
--- NOTE | 2020-09-12 11:27 | CONS ---
DATE OF CONSULTATION: 09/12/2020 LOCATION: He is in room 211. ATTENDING PHYSICIAN: Bertha Tee MD REASON FOR CONSULTATION: The patient was seen at the request of Dr. Tee for rehab evaluation. HISTORY OF PRESENT ILLNESS: This is a 70-year-old male with old cerebrovascular accident, hypercholesterolemia, coronary artery disease, hypertension. The patient has been independent with his mobility and most of the aspects of his self-care, uses a walker to get around. No steps to manage at home. He was admitted through the emergency room on 09/11/2020, after he fell into the grass and he complained of his left leg giving out on him. The patient's states that his legs are more swollen than usual. Also, he has been off his water-filled for about 2 months. The patient fell again on the day of admission did not hit his head. Since the fall, he has not been wanting to use his left lower extremity. He admits to generalized weakness. The patient denies any back pain or hip pain. He admits some pain in his left calf proximal aspect. The patient has been independent with his mobility using a roller walker walks for about a mile per day. He does not have any residual from his cerebrovascular accident. He is not known allergic to any medication. The patient had radiological studies, which revealed mild degenerative changes in the hips. The patient had CT scan of the brain, which failed to reveal any acute abnormalities. PHYSICAL EXAMINATION: GENERAL: The patient on physical exam today revealed a middle-aged male. He is alert, oriented to time, place, person and circumstance, follows commands appropriately. NEUROLOGIC: Moves all 4 extremities voluntarily where he had 4+/5 grade muscle strength. Deep tendon reflexes are 1-2+ and symmetrical, maybe slightly exaggerated at both knees with absent ankle jerks. He had edema of his feet and legs pitting. The patient had minimal tenderness to palpation over medial aspect of left knee and the proximal aspect of left calf. No tenderness to palpation over lumbar spine or trochanteric bursa area. He had pain free range of motion of his hip. He admits some pain in his left knee and ankle on range of motion. The patient requires minimal assistance with bed mobility and transfers. Once up, he had difficulty to try to weightbear on his left foot as he feels like it is about to give out. No obvious knee joint effusion was noted. ASSESSMENT: A middle-aged male with frequent falls as his left knee gives out on him to rule out degenerative meniscus tear contributing to his falls. He had clinical evidence of peripheral neuropathy. The patient had edema of his feet and legs from congestive heart failure in a patient with known hypertension, coronary artery disease, hypercholesterolemia, history of old cerebrovascular accident without any residual deficits. RECOMMENDATIONS: To obtain MRI scan of his left knee to rule out any degenerative tear responsible for his frequent falls, to also obtain a CT scan of his left hip to make sure there is no occult fracture. Dr. Tee, I appreciate asking me to participate in the care of this interesting patient. If there is no evidence of any fracture or torn meniscus to proceed with injecting left knee joint. He may benefit from hinged knee brace. Agree with the plan for physical therapy and occupational therapy. [facility] [place]: LATRELL/charanjit TID: [id number]
--- NOTE | 2020-09-12 11:36 | NUR ---
SS following for discharge planning. SS reviewed pt chart and discussed with pt RN. Pt is from home with spouse and is currently requiring oxygen at two liters nasal canula. Dr. Castañeda consulted. MRI of left knee ordered. PT/OT ordered. SS will continue to follow for discharge planning. Addendum: 09/12/20 at 1613 by YVETTE HINSON SS PT/OT recommended [facility] unit. SS met with pt and discussed discharge planning and [facility] unit. Pt requesting to go to [facility], ; fax [phone]. SS phoned and faxed referral as requested. COVID19 test requested by facility. Pt has had both COVID19 vaccinations. Pt's RN notified.
--- NOTE | 2020-09-12 15:01 | RAD ---
CT left ankle and foot without contrast PQRS statement: CT scans at this facility use dose reduction including either automated exposure cont rol, iterative reconstructions, and /or weight based radiation dosing via mA and kV modification when appropriate to reduce radiation dose to as low as reasonably achievable. HISTORY: Recent fall, unable to bear weight on the left foot, pain, fracture. FINDINGS: At the lateral dorsal cortex of the base of the second metatarsal on short axis images 78-7 9, coronal images 22-23 and sagittal image 23 there is a subcortical 5 mm linear lucency of the under lying trabecular bone there is no disruption of the cortical bone evident is uncertain if this is a p rominent vascular channel versus an acute or subacute trabecular fracture. Remainder of the foot demo nstrates no fracture. No dislocation. There is osteoarthritis with bone spurring and joint space narr owing as well as mild hallux valgus deformity of the first MTP joint and mild osteoarthritic change a t the sesamoid first metatarsal articulation. There is diffuse ankle foot soft tissue edema. CT has l imited ability to assess for tendinous or ligamentous injury. IMPRESSION: 1. 5 mm linear subcortical lucency at the base of the second metatarsal could represent a prominent v ascular channel versus an acute or subacute nondisplaced traumatic fracture of the subcortical trabec ular bone. 2. 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 3. Diffuse ankle and foot soft tissue edema. Electronically signed by: Ankur Candelario MD (09/12/2020 2:58 PM) [facility]
--- NOTE | 2020-09-12 16:06 | RAD ---
EXAM: Standing AP knees bilaterally DATE: 09/12/2020 2:13 PM INDICATIONS: Reason: left knee joint pain while weight bearing. / Spl. Instructions: / History: COMPARISON: No prior FINDINGS/ IMPRESSION: Standing AP view of the right knee shows preserved joint spaces without proliferative change. Standing AP view of the left knee shows preserved joint spaces without proliferative change. Electronically signed by: Aaron Lazaro MD (09/12/2020 4:04 PM) [id number]
--- NOTE | 2020-09-12 19:30 | PDOC2 ---
CONSULT Date of Consult Date of Consult DATE: 09/12/20 TIME: 19:23 Reason for Consult Reason for Consult: Left leg pain after fall. Referring Physician Referring Physician: Dr. Tee Identification/Chief Complaint Chief Complaint Left leg pain and swelling after fall. Source Source: Patient History of Present Illness Reason for Visit: Mr. Marie is a 70-year-old male, admitted to the hospital, for complaints of left leg pain and swelling after a ground level fall. He states he usually ambulates with a front wheel walker. 2 days ago, he fell while outside walking into a ditch. He states he had difficulty getting up. He states his pain has been improving over the last 2 days. He has not yet been up or evaluated by physical therapy. Past Medical History Cardiovascular: HTN, Hyperlipidemia CENTRAL NERVOUS SYSTEM: CVA Past Surgical History Past Surgical History: No pertinent history Family History Family History: Hypertension Social History ALCOHOL: none Current Problem List Problem List Problems Medical Problems: (1) Frequent falls Status: Acute (2) Hypomagnesemia Status: Acute (3) Weakness Status: Acute Current Medications Current Medications Current Medications Magnesium Sulfate 50 ml @ 25 mls/hr 1X ONCE IV Last administered on 09/11/20at 18:58; Start 09/11/20 at 18:45; Stop 09/11/20 at 20:44; Status DC Potassium Chloride/Water 100 ml @ 50 mls/hr 1X ONCE IV Last administered on 09/11/20at 18:58; Start 09/11/20 at 18:45; Stop 09/11/20 at 20:44; Status DC Potassium Chloride (Klor-Con) 40 meq 1X ONCE PO Last administered on 09/11/20at 18:57; Start 09/11/20 at 18:45; Stop 09/11/20 at 18:49; Status DC Amlodipine Besylate (Norvasc) 5 mg DAILY PO Last administered on 09/12/20at 09:27; Start 09/11/20 at 23:00 Aspirin (Ecotrin) 81 mg DAILY PO Last administered on 09/12/20at 09:29; Start 09/12/20 at 09:00 Atorvastatin Calcium (Lipitor) 40 mg QHS PO Last administered on 09/11/20at 23:34; Start 09/11/20 at 23:00 Clonidine HCl (Catapres) 0.3 mg TID PO Last administered on 09/12/20 09:28; Start 09/11/20 at 23:00 Clopidogrel Bisulfate (Plavix) 75 mg DAILY07 PO Last administered on 09/12/20 06:13; Start 09/12/20 at 07:00 Hydrochlorothiazide (Hydrodiuril) 25 mg DAILY PO Last administered on 09/12/20 09:29; Start 09/12/20 at 09:00 Albuterol/ Ipratropium (Duoneb) 3 ml RTQID NEB Last administered on 09/12/20 16:29; Start 09/12/20 at 08:00 Latanoprost (Xalatan) 1 drop QHS OU Last administered on 09/11/20 23:35; Start 09/11/20 at 23:00 Lisinopril (Prinivil) 40 mg DAILY PO Last administered on 09/12/20 09:29; Start 09/11/20 at 23:00 Potassium Chloride (Klor-Con) 20 meq DAILY08 PO Last administered on 09/12/20 09:29; Start 09/12/20 at 08:00 Carvedilol (Coreg) 25 mg BIDWMEALS PO Last administered on 09/12/20 17:07; Start 09/12/20 at 08:00 Enoxaparin Sodium (Lovenox 40mg Syringe) 40 mg DAILY SQ Last administered on 09/12/20 09:33; Start 09/12/20 at 09:00 Acetaminophen/ Hydrocodone Bitart (Lortab 5/325) 1 tab PRN Q6HRS PRN PO PAIN Last administered on 09/11/20 23:35; Start 09/11/20 at 23:15 Potassium Chloride (Klor-Con) 40 meq 1X ONCE PO Last administered on 09/12/20 09:35; Start 09/12/20 at 08:15; Stop 09/12/20 at 08:18; Status DC Potassium Chloride (Klor-Con) 40 meq 1X ONCE PO ; Start 09/12/20 at 12:00; Stop 09/12/20 at 12:01; Status DC Methylprednisolone Acetate (DEPO-Medrol 40MG VIAL) 40 mg 1X ONCE IM ; Start 09/12/20 at 09:30; Stop 09/12/20 at 09:34; Status DC Bupivacaine HCl (Sensorcaine-Mpf 0.25%) 10 ml 1X ONCE IJ ; Start 09/12/20 at 09:30; Stop 09/12/20 at 09:34; Status DC Potassium Chloride (Klor-Con) 40 meq 1X ONCE PO Last administered on 09/12/20at 17:03; Start 09/12/20 at 16:45; Stop 09/12/20 at 16:46; Status DC Active Scripts Active Cephalexin 500 Mg Capsule 1 Cap PO QID 10 Days Duoneb 0.5-3(2.5) Mg/3 Ml (Albuterol/Ipratropium) 3 Ml Ampul.neb 3 Ml NEB RTQID 7 Days Tamiflu (Oseltamivir Phosphate) 30 Mg Capsule 30 Mg PO BID 2 Days Reported Latanoprost 2.5 Ml Drops 1 Drop EACHEYE QHS Hydrochlorothiazide Tablet (Hydrochlorothiazide) 25 Mg Tablet 1 Tab PO DAILY Klor-Con M20 (Potassium Chloride) 20 Meq Tab.er.prt 1 Tab PO DAILY Norvasc (Amlodipine Besylate) 5 Mg Tablet 1 Tab PO DAILY Aspir 81 (Aspirin) 81 Mg Tablet.dr 1 Tab PO DAILY Lipitor (Atorvastatin Calcium) 40 Mg Tablet 1 Tab PO QHS Coreg (Carvedilol) 25 Mg Tablet 1 Tab PO BID Clopidogrel (Clopidogrel Bisulfate) 75 Mg Tablet 1 Tab PO DAILY Lisinopril 40 Mg Tablet 1 Tab PO DAILY Allergies Allergies: Coded Allergies: No Known Drug Allergies (Unverified , 12/29/15) ROS Musculoskeletal: Yes Joint Pain, Yes Joint Swelling Physical Exam General: Alert, Cooperative, No acute distress MUSCULOSKELETAL: Abnormal exam of left (Left lower leg with moderate swelling. No deformity. Intact skin without ecchymosis. ROM of the knee and ankle intact. Locates pain the proximal tibia. Distal NV exam intact.) Vitals VITALS Vital Signs Date Time Temp Pulse Resp B/P (MAP) Pulse Ox O2 Delivery O2 Flow Rate FiO2 09/12/20 17:07 90 110/48 09/12/20 16:29 95 Room Air 09/12/20 15:00 98.8 2.0 98.8 09/12/20 11:00 18 Labs Labs Laboratory Tests Test 09/11/20 17:55 09/11/20 20:15 09/11/20 20:37 09/11/20 23:58 White Blood Count 6.7 x10^3/uL (4.0-11.0) Red Blood Count 4.14 x10^6/uL (4.30-5.70) Hemoglobin 12.8 g/dL (13.0-17.5) Hematocrit 38.4 % (39.0-53.0) Mean Corpuscular Volume 93 fL (79-100) Mean Corpuscular Hemoglobin 31 pg (25-35) Mean Corpuscular Hemoglobin Concent 33 g/dL (31-37) Red Cell Distribution Width 13.0 % (11.5-14.5) Platelet Count 152 x10^3/uL (140-400) Neutrophils (%) (Auto) 83 % (31-73) Lymphocytes (%) (Auto) 10 % (24-48) Monocytes (%) (Auto) 6 % (0-9) Eosinophils (%) (Auto) 1 % (0-3) Basophils (%) (Auto) 0 % (0-3) Neutrophils # (Auto) 5.5 x10^3/uL (1.8-7.7) Lymphocytes # (Auto) 0.7 x10^3/uL (1.0-4.8) Monocytes # (Auto) 0.4 x10^3/uL (0.0-1.1) Eosinophils # (Auto) 0.1 x10^3/uL (0.0-0.7) Basophils # (Auto) 0.0 x10^3/uL (0.0-0.2) Sodium Level 144 mmol/L (136-145) Potassium Level 2.5 mmol/L (3.5-5.1) Chloride Level 111 mmol/L (98-107) Carbon Dioxide Level 23 mmol/L (21-32) Anion Gap 10 (6-14) Blood Urea Nitrogen 9 mg/dL (8-26) Creatinine 1.0 mg/dL (0.7-1.3) Estimated GFR (Cockcroft-Gault) 89.4 BUN/Creatinine Ratio 9 (6-20) Glucose Level 92 mg/dL (70-99) Calcium Level 7.0 mg/dL (8.5-10.1) Magnesium Level 1.6 mg/dL (1.8-2.4) Total Bilirubin 0.9 mg/dL (0.2-1.0) Aspartate Amino Transf (AST/SGOT) 26 U/L (15-37) Alanine Aminotransferase (ALT/SGPT) 16 U/L (16-63) Alkaline Phosphatase 58 U/L (46-116) Troponin I Quantitative < 0.017 ng/mL (0.000-0.055) 0.033 ng/mL (0.000-0.055) 0.029 ng/mL (0.000-0.055) IF-Geb-T-Type Natriuretic Peptide 1047 pg/mL (0-124) Total Protein 5.2 g/dL (6.4-8.2) Albumin 2.7 g/dL (3.4-5.0) Albumin/Globulin Ratio 1.1 (1.0-1.7) Urine Collection Type Unknown Urine Color Yellow Urine Clarity Clear Urine pH 7.5 (<5.0-8.0) Urine Specific [place] 1.020 (1.000-1.030) Urine Protein Negative mg/dL (NEG-TRACE) Urine Glucose (UA) Negative mg/dL (NEG) Urine Ketones (Stick) 15 mg/dL (NEG) Urine Blood Trace (NEG) Urine Nitrite Negative (NEG) Urine Bilirubin Negative (NEG) Urine Urobilinogen Dipstick 0.2 mg/dL (0.2 mg/dL) Urine Leukocyte Esterase Negative (NEG) Urine RBC Occ /HPF (0-2) Urine WBC Occ /HPF (0-4) Urine Squamous Epithelial Cells Occ /LPF Urine Bacteria 0 /HPF (0-FEW) Test 09/12/20 05:50 Sodium Level 144 mmol/L (136-145) Potassium Level 3.1 mmol/L (3.5-5.1) Chloride Level 109 mmol/L (98-107) Carbon Dioxide Level 30 mmol/L (21-32) Anion Gap 5 (6-14) Blood Urea Nitrogen 9 mg/dL (8-26) Creatinine 1.3 mg/dL (0.7-1.3) Estimated GFR (Cockcroft-Gault) 66.0 BUN/Creatinine Ratio 7 (6-20) Glucose Level 111 mg/dL (70-99) Calcium Level 7.9 mg/dL (8.5-10.1) Magnesium Level 2.3 mg/dL (1.8-2.4) Total Bilirubin 0.7 mg/dL (0.2-1.0) Aspartate Amino Transf (AST/SGOT) 24 U/L (15-37) Alanine Aminotransferase (ALT/SGPT) 13 U/L (16-63) Alkaline Phosphatase 60 U/L (46-116) Total Protein 5.7 g/dL (6.4-8.2) Albumin 2.7 g/dL (3.4-5.0) Albumin/Globulin Ratio 0.9 (1.0-1.7) Triglycerides Level 50 mg/dL (0-150) Cholesterol Level 175 mg/dL (0-200) LDL Cholesterol, Calculated 113 mg/dL (0-100) VLDL Cholesterol, Calculated 10 mg/dL (0-40) Non-HDL Cholesterol Calculated 123 mg/dL (0-129) HDL Cholesterol 52 mg/dL (40-60) Cholesterol/HDL Ratio 3.4 Thyroid Stimulating Hormone (TSH) 1.766 uIU/mL (0.358-3.74) Laboratory Tests Test 09/11/20 20:15 09/11/20 20:37 09/11/20 23:58 09/12/20 05:50 Troponin I Quantitative 0.033 ng/mL (0.000-0.055) 0.029 ng/mL (0.000-0.055) Urine Collection Type Unknown Urine Color Yellow Urine Clarity Clear Urine pH 7.5 (<5.0-8.0) Urine Specific [place] 1.020 (1.000-1.030) Urine Protein Negative mg/dL (NEG-TRACE) Urine Glucose (UA) Negative mg/dL (NEG) Urine Ketones (Stick) 15 mg/dL (NEG) Urine Blood Trace (NEG) Urine Nitrite Negative (NEG) Urine Bilirubin Negative (NEG) Urine Urobilinogen Dipstick 0.2 mg/dL (0.2 mg/dL) Urine Leukocyte Esterase Negative (NEG) Urine RBC Occ /HPF (0-2) Urine WBC Occ /HPF (0-4) Urine Squamous Epithelial Cells Occ /LPF Urine Bacteria 0 /HPF (0-FEW) Sodium Level 144 mmol/L (136-145) Potassium Level 3.1 mmol/L (3.5-5.1) Chloride Level 109 mmol/L (98-107) Carbon Dioxide Level 30 mmol/L (21-32) Anion Gap 5 (6-14) Blood Urea Nitrogen 9 mg/dL (8-26) Creatinine 1.3 mg/dL (0.7-1.3) Estimated GFR (Cockcroft-Gault) 66.0 BUN/Creatinine Ratio 7 (6-20) Glucose Level 111 mg/dL (70-99) Calcium Level 7.9 mg/dL (8.5-10.1) Magnesium Level 2.3 mg/dL (1.8-2.4) Total Bilirubin 0.7 mg/dL (0.2-1.0) Aspartate Amino Transf (AST/SGOT) 24 U/L (15-37) Alanine Aminotransferase (ALT/SGPT) 13 U/L (16-63) Alkaline Phosphatase 60 U/L (46-116) Total Protein 5.7 g/dL (6.4-8.2) Albumin 2.7 g/dL (3.4-5.0) Albumin/Globulin Ratio 0.9 (1.0-1.7) Triglycerides Level 50 mg/dL (0-150) Cholesterol Level 175 mg/dL (0-200) LDL Cholesterol, Calculated 113 mg/dL (0-100) VLDL Cholesterol, Calculated 10 mg/dL (0-40) Non-HDL Cholesterol Calculated 123 mg/dL (0-129) HDL Cholesterol 52 mg/dL (40-60) Cholesterol/HDL Ratio 3.4 Thyroid Stimulating Hormone (TSH) 1.766 uIU/mL (0.358-3.74) Images Images Radiographs of the leg left do not reveal acute fracture. No acute bony process. Soft tissue swelling. Assessment/Plan Assessment/Plan 70-year-old male admitted after ground-level fall with complaints of left leg pain and swelling which is improving. -Reviewed imaging and exam with patient. -He states his pain is been improving. He feels like he could get up with physical therapy and attempt walking with a front wheel walker. -No apparent knee pain or effusion. Patient is able to actively range the knee without discomfort. -Recommend continued expectant management. -Agree with PT eval, weightbearing as tolerated. -Please reach out if any further orthopedic needs are warranted. SCOTT SALGUERO DO Sep 12, 2020 19:29
[2020-09-12] MEDS: ATORVASTATIN CALCIUM 40 MG TABLET. PO SCH (21:20)
[2020-09-12] MEDS: LATANOPROST 0.005% OPHTH SOLUTION 2.5ML BOTTLE. OU SCH (21:20)
[2020-09-13 03:29] VITALS: BP 141/82
[2020-09-13 04:30] LABS: CREATININE 1.1 mg/dL (0.7-1.3); GFR 80.1; MAGNESIUM 2.2 mg/dL (1.8-2.4); POTASSIUM 3.7 mmol/L (3.5-5.1)
[2020-09-13] MEDS: CLOPIDOGREL BISULFATE 75 MG TABLET PO SCH ×2 (06:30→08:47)
[2020-09-13 07:00] VITALS: BP 140/85
--- NOTE | 2020-09-13 07:19 | NUR ---
PT UP WITH 2 ASSIST FROM CHAIR TO BED LAST NIGHT. LEGS ARE WEAK, DUE TO PAST CVA'S. LCRN
[2020-09-13] MEDS: IPRATRPIUM/ALBUTEROL 0.5/2.5MG 3 ML NEBU. NEB SCH ×2 (07:30→12:08)
[2020-09-13] MEDS: POTASSIUM CHLORIDE 20 MEQ TABLET.ER. PO SCH (08:46)
[2020-09-13] MEDS: ASPIRIN ENTERIC COATED 81 MG TABLET.DR. PO SCH (08:46)
[2020-09-13] MEDS: hydroCHLOROthiazide 25 MG TABLET PO SCH (08:46)
[2020-09-13] MEDS: CARVEDILOL 12.5 MG TABLET. PO SCH (08:47)
[2020-09-13] MEDS: LISINOPRIL 20 MG TABLET PO SCH (08:47)
[2020-09-13] MEDS: ENOXAPARIN 40 MG/0.4 ML SYRINGE. SQ SCH (09:00)
--- NOTE | 2020-09-13 09:01 | PDOC ---
PROGRESS NOTES Date of Service: DATE: 09/13/20 TIME: 08:59 Subjective Subjective leg pain Objective Objective Vital Signs Date Time Temp Pulse Resp B/P (MAP) Pulse Ox O2 Delivery O2 Flow Rate FiO2 09/13/20 08:47 69 140/85 09/13/20 07:30 97 Room Air 09/13/20 07:00 98.1 18 98.1 09/12/20 15:00 2.0 Intake and Output 09/13/20 07:00 Intake Total 1670 ml Output Total 700 ml Balance 970 ml Intake Oral 1670 ml Output Urine Total 700 ml # Voids 1 Physical Exam Abdomen: Soft Heart: Normal S1, Normal S2 Extremities: No clubbing General: Alert, Cooperative, No acute distress HEENT: Atraumatic Lungs: Clear to auscultation MUSCULOSKELETAL: Abnormal exam of left (Left lower leg with moderate swelling. No deformity. Intact skin without ecchymosis. ROM of the knee and ankle intact. Locates pain the proximal tibia. Distal NV exam intact.) Neck: Supple Neuro: Normal speech Psych/Mental Status: Mental status NL Skin: No breakdown Diagnosis Problem List Problems Medical Problems: (1) Frequent falls Status: Acute (2) Hypomagnesemia Status: Acute (3) Weakness Status: Acute Assessment Assessment Problems Medical Problems: (1) Frequent falls Status: Acute (2) Hypomagnesemia Status: Acute (3) Weakness Status: Acute FINAL IMPRESSION: 1. Hypokalemia. 2. Weakness. 3. Left leg pain, possible sciatica. 4. History of previous stroke. 5. Hypertension. 6. Hyperlipidemia. PLAN: potassium normal ,3.8 cr 1.1 ,other lab s ok. cortisone inj today SNU screen today. At this time, the patient was admitted to the hospital. Potassium was being replaced from 2.5, went up to 3.1. X-rays show no fractures. We will consult rehab, PT, OT and add potassium to the daily regimen and see if it improves. Plan Plan of Care Problems Medical Problems: (1) Frequent falls Status: Acute (2) Hypomagnesemia Status: Acute (3) Weakness Status: Acute Comment Review of Relevant I have reviewed the following items betty (where applicable) has been applied. Labs Laboratory Tests Test 09/13/20 03:25 Sodium Level 141 mmol/L (136-145) Potassium Level 3.7 mmol/L (3.5-5.1) Chloride Level 108 mmol/L (98-107) Carbon Dioxide Level 28 mmol/L (21-32) Anion Gap 5 (6-14) Blood Urea Nitrogen 13 mg/dL (8-26) Creatinine 1.1 mg/dL (0.7-1.3) Estimated GFR (Cockcroft-Gault) 80.1 Glucose Level 89 mg/dL (70-99) Calcium Level 8.0 mg/dL (8.5-10.1) Magnesium Level 2.2 mg/dL (1.8-2.4) Medications Current Medications Aspirin (Ecotrin) 81 mg DAILY PO Last administered on 09/13/20at 08:46; Start 09/12/20 at 09:00 Bupivacaine HCl (Sensorcaine-Mpf 0.25%) 10 ml 1X ONCE IJ ; Start 09/12/20 at 09:30; Stop 09/12/20 at 09:34; Status DC Enoxaparin Sodium (Lovenox 40mg Syringe) 40 mg DAILY SQ Last administered on 09/12/20at 09:33; Start 09/12/20 at 09:00 Hydrochlorothiazide (Hydrodiuril) 25 mg DAILY PO Last administered on 09/13/20at 08:46; Start 09/12/20 at 09:00 Methylprednisolone Acetate (DEPO-Medrol 40MG VIAL) 40 mg 1X ONCE IM ; Start 09/12/20 at 09:30; Stop 09/12/20 at 09:34; Status DC Potassium Chloride (Klor-Con) 40 meq 1X ONCE PO ; Start 09/12/20 at 12:00; Stop 09/12/20 at 12:01; Status DC Potassium Chloride (Klor-Con) 40 meq 1X ONCE PO Last administered on 09/12/20at 17:03; Start 09/12/20 at 16:45; Stop 09/12/20 at 16:46; Status DC Vitals/I & O Vital Sign - Last 24 Hours 09/12/20 09/12/20 09/12/20 09/12/20 09:27 09:28 09:29 09:30 Pulse 90 90 90 90 B/P (MAP) 100/47 100/47 100/47 128/47 09/12/20 09/12/20 09/12/20 09/12/20 11:00 12:14 14:00 15:00 Temp 97.5 98.8 97.5 98.8 Pulse 90 90 90 Resp 18 B/P (MAP) 89/43 (58) 100/48 100/48 (65) Pulse Ox 93 94 94 O2 Delivery Nasal Cannula Room Air Room Air O2 Flow Rate 2.0 2.0 09/12/20 09/12/20 09/12/20 09/12/20 16:29 17:07 19:00 20:00 Temp 97.4 97.4 Pulse 90 72 Resp 16 B/P (MAP) 110/48 98/63 (75) Pulse Ox 95 96 O2 Delivery Room Air Room Air Room Air 09/12/20 09/12/20 09/12/20 09/13/20 21:00 21:53 22:20 03:29 Temp 97.5 97.4 97.5 97.4 Pulse 72 66 67 Resp 16 18 B/P (MAP) 98/63 118/72 (87) 141/82 (101) Pulse Ox 94 96 98 O2 Delivery Room Air Room Air Room Air 09/13/20 09/13/20 09/13/20 09/13/20 07:00 07:30 08:47 08:47 Temp 98.1 98.1 Pulse 69 69 69 Resp 18 B/P (MAP) 140/85 (103) 140/85 140/85 Pulse Ox 93 97 O2 Delivery Room Air Room Air 09/13/20 08:47 Pulse 69 B/P (MAP) 140/85 Intake and Output0 09/12/20 09/12/20 09/13/20 15:00 23:00 07:00 Intake Total 720 ml 300 ml 650 ml Output Total 200 ml 200 ml 300 ml Balance 520 ml 100 ml 350 ml Justifications for Admission Other Justification ZENA AUSTIN MD Sep 13, 2020 09:01
--- NOTE | 2020-09-13 09:04 | PDOC ---
PROGRESS NOTES Date of Service DATE: 09/13/20 TIME: 09:00 Subjective Subjective No new complaints. Objective Objective Vital Signs Date Time Temp Pulse Resp B/P (MAP) Pulse Ox O2 Delivery O2 Flow Rate FiO2 09/13/20 08:47 69 140/85 09/13/20 07:30 97 Room Air 09/13/20 07:00 98.1 18 98.1 09/12/20 15:00 2.0 Intake and Output 09/13/20 07:00 Intake Total 1670 ml Output Total 700 ml Balance 970 ml Intake Oral 1670 ml Output Urine Total 700 ml # Voids 1 Physical Exam Physical Exam He is alert,supine in bed and x-rays did not reveal any significant DJD changes in his knees,although we can see narrowing of knee joint line to some extent,mainly on right. MRI scan was not done to rule out meniscus damage responsible for his left knee giving out and making him to fall. To hold off knee joint injection as he denies any significant knee joint pain. Assessment Assessment Problems Medical Problems: (1) Frequent falls Status: Acute (2) Hypomagnesemia Status: Acute (3) Weakness Status: Acute Plan Plan of Care Agree with plans for SNF transfer when medically stable. Comment Review of Relevant I have reviewed the following items betty (where applicable) has been applied. Labs Laboratory Tests Test 09/11/20 17:55 09/11/20 20:15 09/11/20 20:37 09/11/20 23:58 White Blood Count 6.7 x10^3/uL (4.0-11.0) Red Blood Count 4.14 x10^6/uL (4.30-5.70) Hemoglobin 12.8 g/dL (13.0-17.5) Hematocrit 38.4 % (39.0-53.0) Mean Corpuscular Volume 93 fL (79-100) Mean Corpuscular Hemoglobin 31 pg (25-35) Mean Corpuscular Hemoglobin Concent 33 g/dL (31-37) Red Cell Distribution Width 13.0 % (11.5-14.5) Platelet Count 152 x10^3/uL (140-400) Neutrophils (%) (Auto) 83 % (31-73) Lymphocytes (%) (Auto) 10 % (24-48) Monocytes (%) (Auto) 6 % (0-9) Eosinophils (%) (Auto) 1 % (0-3) Basophils (%) (Auto) 0 % (0-3) Neutrophils # (Auto) 5.5 x10^3/uL (1.8-7.7) Lymphocytes # (Auto) 0.7 x10^3/uL (1.0-4.8) Monocytes # (Auto) 0.4 x10^3/uL (0.0-1.1) Eosinophils # (Auto) 0.1 x10^3/uL (0.0-0.7) Basophils # (Auto) 0.0 x10^3/uL (0.0-0.2) Sodium Level 144 mmol/L (136-145) Potassium Level 2.5 mmol/L (3.5-5.1) Chloride Level 111 mmol/L (98-107) Carbon Dioxide Level 23 mmol/L (21-32) Anion Gap 10 (6-14) Blood Urea Nitrogen 9 mg/dL (8-26) Creatinine 1.0 mg/dL (0.7-1.3) Estimated GFR (Cockcroft-Gault) 89.4 BUN/Creatinine Ratio 9 (6-20) Glucose Level 92 mg/dL (70-99) Calcium Level 7.0 mg/dL (8.5-10.1) Magnesium Level 1.6 mg/dL (1.8-2.4) Total Bilirubin 0.9 mg/dL (0.2-1.0) Aspartate Amino Transf (AST/SGOT) 26 U/L (15-37) Alanine Aminotransferase (ALT/SGPT) 16 U/L (16-63) Alkaline Phosphatase 58 U/L (46-116) Troponin I Quantitative < 0.017 ng/mL (0.000-0.055) 0.033 ng/mL (0.000-0.055) 0.029 ng/mL (0.000-0.055) EG-Ayr-U-Type Natriuretic Peptide 1047 pg/mL (0-124) Total Protein 5.2 g/dL (6.4-8.2) Albumin 2.7 g/dL (3.4-5.0) Albumin/Globulin Ratio 1.1 (1.0-1.7) Urine Collection Type Unknown Urine Color Yellow Urine Clarity Clear Urine pH 7.5 (<5.0-8.0) Urine Specific [place] 1.020 (1.000-1.030) Urine Protein Negative mg/dL (NEG-TRACE) Urine Glucose (UA) Negative mg/dL (NEG) Urine Ketones (Stick) 15 mg/dL (NEG) Urine Blood Trace (NEG) Urine Nitrite Negative (NEG) Urine Bilirubin Negative (NEG) Urine Urobilinogen Dipstick 0.2 mg/dL (0.2 mg/dL) Urine Leukocyte Esterase Negative (NEG) Urine RBC Occ /HPF (0-2) Urine WBC Occ /HPF (0-4) Urine Squamous Epithelial Cells Occ /LPF Urine Bacteria 0 /HPF (0-FEW) Test 09/12/20 05:50 09/13/20 03:25 Sodium Level 144 mmol/L (136-145) 141 mmol/L (136-145) Potassium Level 3.1 mmol/L (3.5-5.1) 3.7 mmol/L (3.5-5.1) Chloride Level 109 mmol/L (98-107) 108 mmol/L (98-107) Carbon Dioxide Level 30 mmol/L (21-32) 28 mmol/L (21-32) Anion Gap 5 (6-14) 5 (6-14) Blood Urea Nitrogen 9 mg/dL (8-26) 13 mg/dL (8-26) Creatinine 1.3 mg/dL (0.7-1.3) 1.1 mg/dL (0.7-1.3) Estimated GFR (Cockcroft-Gault) 66.0 80.1 BUN/Creatinine Ratio 7 (6-20) Glucose Level 111 mg/dL (70-99) 89 mg/dL (70-99) Calcium Level 7.9 mg/dL (8.5-10.1) 8.0 mg/dL (8.5-10.1) Magnesium Level 2.3 mg/dL (1.8-2.4) 2.2 mg/dL (1.8-2.4) Total Bilirubin 0.7 mg/dL (0.2-1.0) Aspartate Amino Transf (AST/SGOT) 24 U/L (15-37) Alanine Aminotransferase (ALT/SGPT) 13 U/L (16-63) Alkaline Phosphatase 60 U/L (46-116) Total Protein 5.7 g/dL (6.4-8.2) Albumin 2.7 g/dL (3.4-5.0) Albumin/Globulin Ratio 0.9 (1.0-1.7) Triglycerides Level 50 mg/dL (0-150) Cholesterol Level 175 mg/dL (0-200) LDL Cholesterol, Calculated 113 mg/dL (0-100) VLDL Cholesterol, Calculated 10 mg/dL (0-40) Non-HDL Cholesterol Calculated 123 mg/dL (0-129) HDL Cholesterol 52 mg/dL (40-60) Cholesterol/HDL Ratio 3.4 Thyroid Stimulating Hormone (TSH) 1.766 uIU/mL (0.358-3.74) Laboratory Tests Test 09/13/20 03:25 Sodium Level 141 mmol/L (136-145) Potassium Level 3.7 mmol/L (3.5-5.1) Chloride Level 108 mmol/L (98-107) Carbon Dioxide Level 28 mmol/L (21-32) Anion Gap 5 (6-14) Blood Urea Nitrogen 13 mg/dL (8-26) Creatinine 1.1 mg/dL (0.7-1.3) Estimated GFR (Cockcroft-Gault) 80.1 Glucose Level 89 mg/dL (70-99) Calcium Level 8.0 mg/dL (8.5-10.1) Magnesium Level 2.2 mg/dL (1.8-2.4) Medications Current Medications Magnesium Sulfate 50 ml @ 25 mls/hr 1X ONCE IV Last administered on 09/11/20at 18:58; Start 09/11/20 at 18:45; Stop 09/11/20 at 20:44; Status DC Potassium Chloride/Water 100 ml @ 50 mls/hr 1X ONCE IV Last administered on 09/11/20at 18:58; Start 09/11/20 at 18:45; Stop 09/11/20 at 20:44; Status DC Potassium Chloride (Klor-Con) 40 meq 1X ONCE PO Last administered on 09/11/20at 18:57; Start 09/11/20 at 18:45; Stop 09/11/20 at 18:49; Status DC Amlodipine Besylate (Norvasc) 5 mg DAILY PO Last administered on 09/13/20at 08:47; Start 09/11/20 at 23:00 Aspirin (Ecotrin) 81 mg DAILY PO Last administered on 09/13/20 08:46; Start 09/12/20 at 09:00 Atorvastatin Calcium (Lipitor) 40 mg QHS PO Last administered on 09/12/20 21:20; Start 09/11/20 at 23:00 Clonidine HCl (Catapres) 0.3 mg TID PO Last administered on 09/12/20 09:28; Start 09/11/20 at 23:00 Clopidogrel Bisulfate (Plavix) 75 mg DAILY07 PO Last administered on 09/13/20 08:47; Start 09/12/20 at 07:00 Hydrochlorothiazide (Hydrodiuril) 25 mg DAILY PO Last administered on 09/13/20 08:46; Start 09/12/20 at 09:00 Albuterol/ Ipratropium (Duoneb) 3 ml RTQID NEB Last administered on 09/13/20 07:30; Start 09/12/20 at 08:00 Latanoprost (Xalatan) 1 drop QHS OU Last administered on 09/12/20 21:20; Start 09/11/20 at 23:00 Lisinopril (Prinivil) 40 mg DAILY PO Last administered on 09/13/20 08:47; Start 09/11/20 at 23:00 Potassium Chloride (Klor-Con) 20 meq DAILY08 PO Last administered on 09/13/20 08:46; Start 09/12/20 at 08:00 Carvedilol (Coreg) 25 mg BIDWMEALS PO Last administered on 09/13/20 08:47; Start 09/12/20 at 08:00 Enoxaparin Sodium (Lovenox 40mg Syringe) 40 mg DAILY SQ Last administered on 09/12/20 09:33; Start 09/12/20 at 09:00 Acetaminophen/ Hydrocodone Bitart (Lortab 5/325) 1 tab PRN Q6HRS PRN PO PAIN Last administered on 09/11/20 23:35; Start 09/11/20 at 23:15 Potassium Chloride (Klor-Con) 40 meq 1X ONCE PO Last administered on 09/12/20 09:35; Start 09/12/20 at 08:15; Stop 09/12/20 at 08:18; Status DC Potassium Chloride (Klor-Con) 40 meq 1X ONCE PO ; Start 09/12/20 at 12:00; Stop 09/12/20 at 12:01; Status DC Methylprednisolone Acetate (DEPO-Medrol 40MG VIAL) 40 mg 1X ONCE IM ; Start 09/12/20 at 09:30; Stop 09/12/20 at 09:34; Status DC Bupivacaine HCl (Sensorcaine-Mpf 0.25%) 10 ml 1X ONCE IJ ; Start 09/12/20 at 09:30; Stop 09/12/20 at 09:34; Status DC Potassium Chloride (Klor-Con) 40 meq 1X ONCE PO Last administered on 09/12/20at 17:03; Start 09/12/20 at 16:45; Stop 09/12/20 at 16:46; Status DC Active Scripts Active Cephalexin 500 Mg Capsule 1 Cap PO QID 10 Days Duoneb 0.5-3(2.5) Mg/3 Ml (Albuterol/Ipratropium) 3 Ml Ampul.neb 3 Ml NEB RTQID 7 Days Tamiflu (Oseltamivir Phosphate) 30 Mg Capsule 30 Mg PO BID 2 Days Reported Latanoprost 2.5 Ml Drops 1 Drop EACHEYE QHS Hydrochlorothiazide Tablet (Hydrochlorothiazide) 25 Mg Tablet 1 Tab PO DAILY Klor-Con M20 (Potassium Chloride) 20 Meq Tab.er.prt 1 Tab PO DAILY Norvasc (Amlodipine Besylate) 5 Mg Tablet 1 Tab PO DAILY Aspir 81 (Aspirin) 81 Mg Tablet.dr 1 Tab PO DAILY Lipitor (Atorvastatin Calcium) 40 Mg Tablet 1 Tab PO QHS Coreg (Carvedilol) 25 Mg Tablet 1 Tab PO BID Clopidogrel (Clopidogrel Bisulfate) 75 Mg Tablet 1 Tab PO DAILY Lisinopril 40 Mg Tablet 1 Tab PO DAILY Vitals/I & O Vital Sign - Last 24 Hours 09/12/20 09/12/20 09/12/20 09/12/20 09:27 09:28 09:29 09:30 Pulse 90 90 90 90 B/P (MAP) 100/47 100/47 100/47 128/47 09/12/20 09/12/20 09/12/20 09/12/20 11:00 12:14 14:00 15:00 Temp 97.5 98.8 97.5 98.8 Pulse 90 90 90 Resp 18 B/P (MAP) 89/43 (58) 100/48 100/48 (65) Pulse Ox 93 94 94 O2 Delivery Nasal Cannula Room Air Room Air O2 Flow Rate 2.0 2.0 09/12/20 09/12/20 09/12/20 09/12/20 16:29 17:07 19:00 20:00 Temp 97.4 97.4 Pulse 90 72 Resp 16 B/P (MAP) 110/48 98/63 (75) Pulse Ox 95 96 O2 Delivery Room Air Room Air Room Air 09/12/20 09/12/20 09/12/20 09/13/20 21:00 21:53 22:20 03:29 Temp 97.5 97.4 97.5 97.4 Pulse 72 66 67 Resp 16 18 B/P (MAP) 98/63 118/72 (87) 141/82 (101) Pulse Ox 94 96 98 O2 Delivery Room Air Room Air Room Air 09/13/20 09/13/20 09/13/20 09/13/20 07:00 07:30 08:47 08:47 Temp 98.1 98.1 Pulse 69 69 69 Resp 18 B/P (MAP) 140/85 (103) 140/85 140/85 Pulse Ox 93 97 O2 Delivery Room Air Room Air 09/13/20 08:47 Pulse 69 B/P (MAP) 140/85 Intake and Output 09/12/20 09/12/20 09/13/20 15:00 23:00 07:00 Intake Total 720 ml 300 ml 650 ml Output Total 200 ml 200 ml 300 ml Balance 520 ml 100 ml 350 ml Justifications for Admission Other Justification RIZWANA LEDESMA MD Sep 13, 2020 09:04
--- NOTE | 2020-09-13 10:30 | SNU/HH DC ---
DISCHARGE ORDERS DISCHARGE INFORMATION: DISCHARGE DATE: Sep 13, 2020 FINAL DIAGNOSIS Problems Medical Problems: (1) Frequent falls Status: Acute (2) Hypomagnesemia Status: Acute (3) Weakness Status: Acute CONDITION ON DISCHARGE: Stable CODE STATUS: Code Status: Full ALF: SNF STAY <30 DAYS: Yes HOSPICE: HOSPICE: No LTAC: ADMIT TO LTAC: No POST DISCHARGE ORDERS: ACTIVITY ORDERS: Resume previous activity DIET AFTER DISCHARGE: Low Sodium 2 gm CHECKS AFTER DISCHARGE: CHECKS AFTER DISCHARGE: Check blood press - daily FOLLOW-UP: LAB ORDERS FOR FOLLOW-UP: bmp weekly Additional Instructions: do MRI lumbar spine in left leg pain does not improve TREATMENT/EQUIPMENT ORDERS: ADAPTIVE EQUIPMENT NEEDED: Platform walker RESPIRATORY EQUIPMENT NEEDED: Nebulizer Physical Therapy For: Evalulation/Treatment Occupational Therapy For: Evaluation/Treatment DISCHARGE MEDICATIONS: Home Meds Reported Medications Latanoprost (LATANOPROST) 2.5 Ml Drops, 1 DROP EACHEYE QHS, #7.5 ML 3 Refills 12/30/15 Hydrochlorothiazide (HYDROCHLOROTHIAZIDE TABLET ) 25 Mg Tablet, 1 TAB PO DAILY, #30 TAB 5 Refills 12/29/15 Potassium Chloride (KLOR-CON M20) 20 Meq Tab.er.prt, 1 TAB PO DAILY, #90 TAB 1 Refill 12/29/15 Amlodipine Besylate (NORVASC) 5 Mg Tablet, 1 TAB PO DAILY, #30 TAB 5 Refills 12/29/15 Aspirin (ASPIR 81) 81 Mg Tablet.dr, 1 TAB PO DAILY, #30 TAB 5 Refills 12/29/15 Atorvastatin Calcium (LIPITOR) 40 Mg Tablet, 1 TAB PO QHS, #90 TAB 1 Refill 12/29/15 Carvedilol (COREG) 25 Mg Tablet, 1 TAB PO BID, #60 TAB 5 Refills 12/29/15 Clopidogrel Bisulfate (CLOPIDOGREL) 75 Mg Tablet, 1 TAB PO DAILY, #90 TAB 1 Refill 12/29/15 Lisinopril (LISINOPRIL) 40 Mg Tablet, 1 TAB PO DAILY, #30 TAB 5 Refills 12/29/15 Discontinued Reported Medications Clonidine Hcl (CLONIDINE HCL) 0.3 Mg Tablet, 1 TAB PO TID, #30 TAB 2 Refills 12/29/15 Discontinued Scripts Cephalexin (CEPHALEXIN) 500 Mg Capsule, 1 CAP PO QID for 10 Days, #40 CAP Prov:MIKE FERNANDEZ MD 06/03/20 Ipratropium/Albuterol Sulfate (DUONEB 0.5-3(2.5) MG/3 ML) 3 Ml Ampul.neb, 3 ML NEB RTQID for wheezing for 7 Days, #28 EACH Prov:ZENA AUSTIN MD 02/04/19 Oseltamivir Phosphate (TAMIFLU) 30 Mg Capsule, 30 MG PO BID for flue for 2 Days, #4 CAP Prov:ZENA AUSTIN MD 02/04/19 ZENA AUSTIN MD Sep 13, 2020 10:30
[2020-09-13 10:54] VITALS: BP 134/80
--- NOTE | 2020-09-13 11:33 | NUR ---
SS following up with discharge planning. SS reviewed pt chart and discussed with pt RN. Pt is currently on room air. COVID19 negative. PT/OT recommended [facility] unit. Pt accepted at [facility], ; fax [phone]. Insurance approval received. Discharge orders received and phoned and faxed to [facility]. Pt will discharge today and go to [facility] between 1500 and 1530[facility] and pt's RN notified.
[2020-09-13 15:00] VITALS: BP 139/77
--- NOTE | 2020-09-13 15:45 | NUR ---
REPORT GIVEN TO [facility] NURSING STAFF. PIV AND HEART MONITOR REMOVED. PATIENT OFF UNIT PER WHEELCHAIR PER TRANSPORTATION.
== END 2020-09-13 15:45 ==
LOC: ER 17:12 → ED HOLD 18:58 → INTOOBSV 18:58 → 2 NORTH 22:06
PROVIDERS: ADMIT Internal Medicine; ATTEND Internal Medicine
DX: E87.6 Hypokalemia (principal); Z20.822 Contact with and (suspected) exposure to COVID-19; I13.0 Hypertensive heart and chronic kidney disease with heart failure and stage 1 through stage 4 chronic kidney disease, or unspecified chronic kidney disease; N18.9 Chronic kidney disease, unspecified; E78.00 Pure hypercholesterolemia, unspecified; E78.5 Hyperlipidemia, unspecified; E83.42 Hypomagnesemia; M79.662 Pain in left lower leg; I25.10 Atherosclerotic heart disease of native coronary artery without angina pectoris; R29.6 Repeated falls; R53.1 Weakness; M79.605 Pain in left leg; Z82.49 Family history of ischemic heart disease and other diseases of the circulatory system; Z86.73 Personal history of transient ischemic attack (TIA), and cerebral infarction without residual deficits
CPT/HCPCS: 36415; 70450; 71045; 73521; 73565; 73700; 80048; 80053; 80061; 81001; 83735; 83880; 84443; 84484; 85025; 87426; 93005; 94640; 94760; 96365; 96366; 96368; 97162; 97166; 99285; G0378; J1650; J3475; J3480; G0379

== ENCOUNTER 2020-10-29 11:16 | Inpatient (IN) | payer MEDICARE ==
[~2020-10-29] VITALS: Ht 172.7 cm; Wt 82.0 kg
[~2020-10-29 11:16] MED LIST changes: +POTA-121 PO; -POTA20TA4 PO
[2020-10-29 12:15] LABS: BASO % 1 % (0-3); EOS # 0.1 x10^3/uL (0.0-0.7); EOS % 2 % (0-3); HEMATOCRIT 34.9 % (39.0-53.0); HEMOGLOBIN 12.2 g/dL (13.0-17.5); LYMPH # 0.8 x10^3/uL (1.0-4.8); LYMPH % 25 % (24-48); MEAN CORPUSCULAR HEMOGLOBIN 31 pg (25-35); MEAN CORPUSCULAR HGB CONC 35 g/dL (31-37); MEAN CORPUSCULAR VOLUME 89 fL (79-100); MONO # 0.3 x10^3/uL (0.0-1.1); MONO % 8 % (0-9); NEUT # 2.1 x10^3/uL (1.8-7.7); NEUT % 64 % (31-73); PLATELET COUNT 225 x10^3/uL (140-400); RED BLOOD COUNT 3.91 x10^6/uL (4.30-5.70); RED CELL DISTRIBUTION WIDTH 13.1 % (11.5-14.5); WHITE BLOOD COUNT 3.4 x10^3/uL (4.0-11.0)
--- NOTE | 2020-10-29 12:19 | PHYS DOC ---
Past Medical History Past Medical History: CAD, CVA, High Cholesterol, Heart Disease, Hypertension, Stroke Additional Past Medical Histor: stroke 10years ago with LEFT sided deficit. Past Surgical History: No Surgical History Smoking Status: Never Smoker Alcohol Use: None Drug Use: None General Adult EDM: Chief Complaint: WEAKNESS/GENERALIZED HPI: HPI: Patient is a 70 year old male with history of HTN, HLD, stroke, CAD who presents with generalized weakness for the past 2 weeks. Has had 3 falls. All 3 falls happened on a position change and he felt lightheaded just prior to falling. All right after going from sitting to standing. Denies any injuries from his falls. His brother, who he lives with, states that on one occasion he did hit his head. He is always recovered to his neurologic baseline quickly. He did have a stroke approximately 10 years ago with residual dysarthria and left-sided deficits. These have not recently changed. No other new neurologic symptoms. Denies chest pain, shortness of breath, palpitations. No fever/ch ills, sore throat, nasal congestion, cough. No Covid exposures. He is fully vaccinated. Review of Systems: Review of Systems: Constitutional: Denies fever or chills. [] Eyes: Denies change in visual acuity. [] HENT: Denies nasal congestion or sore throat. [] Respiratory: Denies cough or shortness of breath. [] Cardiovascular: Denies chest pain or edema. [] GI: Denies abdominal pain, nausea, vomiting, bloody stools or diarrhea. [] : Denies dysuria. [] Musculoskeletal: Denies back pain or joint pain. [] Integument: Denies rash. [] Neurologic: Denies headache, focal weakness or sensory changes. [] Endocrine: Denies polyuria or polydipsia. [] Lymphatic: Denies swollen glands. [] Psychiatric: Denies depression or anxiety. [] Heart Score: C/O Chest Pain: No Risk Factors: Risk Factors: DM, Current or recent (<one month) smoker, HTN, HLP, family history of CAD, obesity. Risk Scores: Score 0 - 3: 2.5% MACE over next 6 weeks - Discharge Home Score 4 - 6: 20.3% MACE over next 6 weeks - Admit for Clinical Observation Score 7 - 10: 72.7% MACE over next 6 weeks - Early Invasive Strategies Allergies: Allergies: Allergies Coded Allergies Type Severity Reaction Last Updated Verified No Known Drug Allergies 12/29/15 No Physical Exam: PE: Constitutional: Appears fatigued. No acute distress. [] HENT: Normocephalic, atraumatic, [] Eyes: PERRLA, EOMI, conjunctiva normal, no discharge. [] Neck: Normal range of motion, no tenderness, supple, no stridor. [] Cardiovascular:Heart rate regular rhythm, no murmur [] Lungs & Thorax: Bilateral breath sounds clear to auscultation [] Abdomen: Bowel sounds normal, soft, no tenderness, no masses, no pulsatile masses. [] Skin: Warm, dry, no erythema, no rash. [] Back: No tenderness, no CVA tenderness. [] Extremities: No tenderness, no cyanosis, no clubbing, ROM intact, no edema. [] Neurologic: Alert and oriented X 3 Face symmetric Speech dysarthric (reported baseline) Cranial nerves intact 5/5 upper extremity strength with no drift. 4/5 lower extremity strength with bilateral/symmetric drift but does not hit bed. [] Psychologic: Affect normal, judgement normal, mood normal. [] Current Patient Data: Vital Signs: Vital Signs Date Time Temp Pulse Resp B/P (MAP) Pulse Ox O2 Delivery O2 Flow Rate FiO2 10/29/20 11:32 98.3 80 18 121/61 (81) 99 Room Air 98.3 EKG: EKG: Sinus rhythm. Rate 76. Left axis deviation. Normal intervals. No acute ischemic changes. [] Radiology/Procedures: Radiology/Procedures: CT Head: No acute process. [] Course & Med Decision Making: Course & Med Decision Making Pertinent Labs and Imaging studies reviewed. (See chart for details) Patient is 70-year-old male with history of CVA, HTN, HLD, CAD who presents with generalized weakness and falls related to orthostatic lightheadedness. Feels that he is unsafe to care for himself at home where he lives with his brother. On arrival is afebrile and hemodynamically stable. EKG was sinus rhythm with normal intervals and no ischemic changes. He is on dual antiplatelet therapy, and struck his head on at least [address] head ordered to evaluate for traumatic hemorrhage. No lateralizing symptoms to suggest new CVA or stroke recrudescence. CBC, BMP, troponin without acute abnormality to explain his generalized weakness. Feel that he is too weak to return home safely. We will plan on admission to hospitalist service. Kishan Disclaimer: Kishan Disclaimer: This electronic medical record was generated, in whole or in part, using a voice recognition dictation system. Departure Departure Impression: Primary Impression: Failure to thrive in adult Additional Impressions: Orthostatic lightheadedness Falls frequently Hypokalemia Disposition: ADMITTED INPATIENT Admitting Physician: Zena Tee Referrals: ZENA TEE MD (PCP) VINI PANDA MD Oct 29, 2020 12:19
[2020-10-29 12:28] LABS: CALCIUM 8.4 mg/dL (8.5-10.1); CREATININE 1.5 mg/dL (0.7-1.3); POTASSIUM 3.3 mmol/L (3.5-5.1)
[2020-10-29 12:33] LABS: ALBUMIN 3.1 g/dL (3.4-5.0); ALBUMIN/GLOBULIN RATIO 0.9 (1.0-1.7); TOTAL BILIRUBIN 0.6 mg/dL (0.2-1.0); TOTAL PROTEIN 6.7 g/dL (6.4-8.2)
--- NOTE | 2020-10-29 12:41 | RAD ---
CT HEAD/BRAIN WO Clinical indications: Reason: falls, head strike COMPARISON: September 11, 2020. Technique: Noncontrast axial cross sectional scanning of the head was performed. PQRS compliance Statement One or more of the following individualized dose reduction techniques were utilized for this study: 1. Automated exposure control 2. Adjustment of the mA and/or kV according to patient size 3. Use of iterative reconstruction technique Findings: No acute intracranial hemorrhage or midline shift or mass-effect or hydrocephalus or extra- axial fluid collection is seen. Mild bilateral periventricular hypodensity is seen consistent with ch ronic small vessel ischemic disease in this age group. No new focal hypodense area or sulci effacemen t is seen to indicate an acute infarct or edema radiographically. No skull fracture or pneumocephalu s is seen. No opacification of the mastoid sinuses or the middle ear cavities or the paranasal sinuse s is seen. Polypoid mucosal thickening or small polyps of both maxillary sinuses are seen.The maxilla ry sinuses are not completely seen in this study. IMPRESSION: No new intracranial abnormality is seen. Electronically signed by: Dragan Alberto MD (10/29/2020 12:38 PM) [id number]
[2020-10-29 14:27] VITALS: BP 141/74
--- NOTE | 2020-10-29 15:46 | EKG ---
[facility] [address] [place] [address] Test Date: 2020-10-29 Test Time: 11:27:54 Pat Name: JAYE NAVARRETE Department: Room: [facility] Gender: M [employer] Fe[employer]: : [id number] Requested By: VINI PANDA Order Number: [id number] Reading MD: Yinka Liang Measurements Intervals [place] Rate: 76 P: 29 [place]: 170 QRS: -19 QRSD: 94 T: 12 QT: 350 QTc: 398 Interpretive Statements SINUS RHYTHM LEFTWARD AXIS Electronically Signed On 11-01-2020 13:32:03 CDT by Yinka Liang
[2020-10-29] MEDS: CARVEDILOL 12.5 MG TABLET. PO SCH (17:00)
[2020-10-29 19:15] VITALS: BP 137/80
[2020-10-29] MEDS: LATANOPROST 0.005% OPHTH SOLUTION 2.5ML BOTTLE. OU SCH (20:59)
[2020-10-29] MEDS: ATORVASTATIN CALCIUM 40 MG TABLET. PO SCH (20:59)
[2020-10-29 23:31] VITALS: BP 142/83
[2020-10-30] MEDS ORDERED: HYDROcodone/APAP 5/325MG 1 TAB TABLET PO PRN (03:15)
[2020-10-30 03:28] VITALS: BP 133/75
[2020-10-30 07:00] VITALS: BP 121/69
[2020-10-30 07:52] LABS: BASO % 1 % (0-3); EOS # 0.1 x10^3/uL (0.0-0.7); EOS % 2 % (0-3); HEMATOCRIT 33.3 % (39.0-53.0); HEMOGLOBIN 11.4 g/dL (13.0-17.5); LYMPH # 1.3 x10^3/uL (1.0-4.8); LYMPH % 35 % (24-48); MEAN CORPUSCULAR HEMOGLOBIN 31 pg (25-35); MEAN CORPUSCULAR HGB CONC 34 g/dL (31-37); MEAN CORPUSCULAR VOLUME 91 fL (79-100); MONO # 0.4 x10^3/uL (0.0-1.1); MONO % 10 % (0-9); NEUT % 53 % (31-73); PLATELET COUNT 208 x10^3/uL (140-400); RED BLOOD COUNT 3.68 x10^6/uL (4.30-5.70); RED CELL DISTRIBUTION WIDTH 12.9 % (11.5-14.5); WHITE BLOOD COUNT 3.7 x10^3/uL (4.0-11.0)
[2020-10-30 08:16] LABS: ALBUMIN 2.5 g/dL (3.4-5.0); ALBUMIN/GLOBULIN RATIO 0.7 (1.0-1.7); CALCIUM 8.1 mg/dL (8.5-10.1); CREATININE 1.3 mg/dL (0.7-1.3); POTASSIUM 3.7 mmol/L (3.5-5.1); TOTAL BILIRUBIN 0.7 mg/dL (0.2-1.0); TOTAL PROTEIN 5.9 g/dL (6.4-8.2)
--- NOTE | 2020-10-30 08:23 | RAD ---
PROCEDURE: XR CHEST 1V.10/30/2020 8:20 AM REASON FOR STUDY: Reason: htn / Spl. Instructions: / History: . COMPARISON: Study of 09/11/2020. FINDINGS: No infiltrate or effusion is seen. The heart may be mildly enlarged, but appears unchanged. Pulmonary vascularity is not congested. IMPRESSION: No acute abnormality. Electronically signed by: Jos Holcomb Jr., MD (10/30/2020 8:21 AM) [id number]
[2020-10-30] MEDS: CARVEDILOL 12.5 MG TABLET. PO SCH ×2 (08:27→17:54)
[2020-10-30] MEDS: POTASSIUM CHLORIDE 20 MEQ TABLET.ER. PO SCH (08:27)
[2020-10-30] MEDS: ASPIRIN ENTERIC COATED 81 MG TABLET.DR. PO SCH (08:27)
[2020-10-30] MEDS: CLOPIDOGREL BISULFATE 75 MG TABLET PO SCH (08:27)
[2020-10-30] MEDS: LISINOPRIL 20 MG TABLET PO SCH (08:28)
[2020-10-30] MEDS ORDERED: ACETAMINOPHEN 325 MG TABLET. PO PRN (08:45)
[2020-10-30] MEDS ORDERED: hydroCHLOROthiazide 25 MG TABLET PO SCH (09:00)
--- NOTE | 2020-10-30 09:14 | PDOC ---
Provider Note Date of Service: DATE: 10/30/20 TIME: 09:14 Provider Note H&P dictated #[id number] Justifications for Admission Other Justification RIGOBERTO TREJO MD Oct 30, 2020 09:14
[2020-10-30 11:00] VITALS: BP 131/78
--- NOTE | 2020-10-30 12:53 | HP ---
ADMIT DATE: 10/29/2020 ADMITTING PHYSICIAN: Dr. Tee. HISTORY OF PRESENT ILLNESS: A 70-year-old male with history of old CVA with left-sided weakness, hypertension, hyperlipidemia and coronary artery disease, has been getting weaker for the last 2 weeks. Three weeks ago, he went to a trip to [place] with his brother. He has been getting weaker and has had 3 falls in the last 2 weeks. The falls happen with position change, and he also felt lightheaded prior to falling. Falls happen when he was trying to stand up. He had one episode of head trauma. No history of loss of consciousness or any new signs or symptoms suggestive of any new focal neurovascular deficit. Because of his persistent weakness and frequent falls, the patient was brought to the Emergency Room by his brother. In the Emergency Room, the patient's potassium was 3.3, his WBC count was also 3.4, hemoglobin was 12.2, BUN was 13 and creatinine was 1.5. Glucose 138. Albumin 3.1. AST 24, ALT 17. Platelet count 225,000. A CT scan of head did not show any acute changes. Chest x-ray also did not show any acute abnormalities. Because of the persistent weakness, frequent falls, and hypokalemia, the patient was admitted for further evaluation and management. SYSTEMS REVIEW: The patient denies any cold, cough, congestion, chest pains, fever, chills, nausea, vomiting, diarrhea, constipation or any recent exposure to anyone with COVID-19 infection. As per family, the patient is getting weaker and would need placement in a senior living. Other systems reviewed and are negative. The patient is not a good historian. PAST MEDICAL HISTORY: The patient was last admitted here in 08/2020. He has a history of hypertension, hyperlipidemia, coronary artery disease, old stroke with left-sided weakness, hyperlipidemia, hypertension, hypokalemia. He has chronic left-sided weakness. PAST SURGICAL HISTORY: Noncontributory. FAMILY HISTORY: Reviewed and noncontributory. ALLERGIES: None known any. MEDICATIONS: Reviewed. The patient is on amlodipine, aspirin, atorvastatin, Coreg, Plavix, hydrochlorothiazide, lisinopril and potassium chloride 20 mEq daily. He is also on latanoprost eye drops. SOCIAL HISTORY: No history of smoking, alcoholism, or drug abuse. He uses walker and wheelchair. PHYSICAL EXAMINATION: VITAL SIGNS: Temperature 98.3, pulse 80 per minute, respirations 18 per minute, blood pressure 121/61 mmHg. GENERAL: The patient is not in acute distress. EYES: Pupils reacting to light. Conjunctivae pale. Sclerae muddy. HENT: Unremarkable. NECK: Supple. JVP normal. No thyromegaly. Trachea midline. LUNGS: Decreased breath sounds at bases. CARDIOVASCULAR: S1, S2 regular. ABDOMEN: Soft, nontender. EXTREMITIES: No edema. CENTRAL NERVOUS SYSTEM: The patient has some generalized weakness, but also has some left-sided weakness that appears to be chronic. SKIN: Warm and dry. He has 2 wounds on gluteal areas bilaterally. The wounds are dry. The patient also has some urinary incontinence. LABORATORY FINDINGS: As noted earlier. IMPRESSION: 1. Frequent falls. 2. Dizziness, likely due to orthostatic hypotension and hypokalemia. 3. Hypokalemia. 4. Multiple wounds. 5. Old cerebrovascular accident. 6. Hypertension. 7. Coronary artery disease. EILEEN/ELIZABETH/SHYAM DR: Mark TID: [id number] CC: ZENA TEE MD
[2020-10-30 15:00] VITALS: BP 122/71
[2020-10-30 19:00] VITALS: BP 145/84
[2020-10-30] MEDS: ATORVASTATIN CALCIUM 40 MG TABLET. PO SCH (21:20)
[2020-10-30] MEDS: LATANOPROST 0.005% OPHTH SOLUTION 2.5ML BOTTLE. OU SCH (21:20)
[2020-10-30 23:00] VITALS: BP 137/78
[2020-10-31 03:00] VITALS: BP 143/75
[2020-10-31 06:23] LABS: CALCIUM 8.5 mg/dL (8.5-10.1); CREATININE 1.2 mg/dL (0.7-1.3); GFR 72.4; MAGNESIUM 1.8 mg/dL (1.8-2.4); POTASSIUM 3.8 mmol/L (3.5-5.1)
[2020-10-31 07:00] VITALS: BP 140/80
[2020-10-31 07:18] LABS: BASO % 1 % (0-3); EOS # 0.1 x10^3/uL (0.0-0.7); EOS % 2 % (0-3); HEMATOCRIT 34.7 % (39.0-53.0); HEMOGLOBIN 12.1 g/dL (13.0-17.5); LYMPH # 1.3 x10^3/uL (1.0-4.8); LYMPH % 36 % (24-48); MEAN CORPUSCULAR HEMOGLOBIN 32 pg (25-35); MEAN CORPUSCULAR HGB CONC 35 g/dL (31-37); MEAN CORPUSCULAR VOLUME 91 fL (79-100); MONO # 0.4 x10^3/uL (0.0-1.1); MONO % 10 % (0-9); NEUT # 1.8 x10^3/uL (1.8-7.7); NEUT % 51 % (31-73); PLATELET COUNT 193 x10^3/uL (140-400); RED CELL DISTRIBUTION WIDTH 13.3 % (11.5-14.5); WHITE BLOOD COUNT 3.5 x10^3/uL (4.0-11.0)
[2020-10-31] MEDS: POTASSIUM CHLORIDE 20 MEQ TABLET.ER. PO SCH (08:24)
[2020-10-31] MEDS: ASPIRIN ENTERIC COATED 81 MG TABLET.DR. PO SCH (08:24)
[2020-10-31] MEDS: CARVEDILOL 12.5 MG TABLET. PO SCH ×2 (08:25→18:09)
[2020-10-31] MEDS: LISINOPRIL 20 MG TABLET PO SCH (08:25)
[2020-10-31] MEDS: CLOPIDOGREL BISULFATE 75 MG TABLET PO SCH (08:25)
--- NOTE | 2020-10-31 09:00 | PDOC ---
PROGRESS NOTES Date of Service: DATE: 10/31/20 TIME: 08:58 Subjective Subjective feels good ,want to go to SNU Objective Objective Vital Signs Date Time Temp Pulse Resp B/P (MAP) Pulse Ox O2 Delivery O2 Flow Rate FiO2 10/31/20 08:25 75 140/80 10/31/20 07:00 97.6 16 96 Room Air 97.6 Intake and Output 10/31/20 07:00 Output Total 750 ml Balance -750 ml Output Urine Total 750 ml # Voids 2 Physical Exam Abdomen: Soft Heart: Normal S1, Normal S2 Extremities: No clubbing General: Alert HEENT: Atraumatic Lungs: Clear to auscultation MUSCULOSKELETAL: No swelling, Abnormal exam of left Neck: No JVD Neuro: Normal speech Psych/Mental Status: Mental status NL Skin: No breakdown Diagnosis Problem List Problems Medical Problems: (1) Failure to thrive in adult Status: Acute (2) Falls frequently Status: Acute (3) Frequent falls Status: Acute (4) Orthostatic lightheadedness Status: Acute Assessment Assessment Problems Medical Problems: (1) Failure to thrive in adult Status: Acute (2) Falls frequently Status: Acute (3) Frequent falls Status: Acute (4) Orthostatic lightheadedness Status: Acute IMPRESSION: 1. Frequent falls. 2. Dizziness, likely due to orthostatic hypotension and hypokalemia. 3. Hypokalemia. 4. Multiple wounds. 5. Old cerebrovascular accident. 6. Hypertension. 7. Coronary artery disease. Plan SNU screen d/c iv fluids cr 1.2 down from 1.5 covid screen -ve pt/ot/rehab Plan Plan of Care Problems Medical Problems: (1) Failure to thrive in adult Status: Acute (2) Falls frequently Status: Acute (3) Frequent falls Status: Acute (4) Orthostatic lightheadedness Status: Acute Comment Review of Relevant I have reviewed the following items betty (where applicable) has been applied. Labs Laboratory Tests Test 10/30/20 09:58 10/31/20 05:40 SARS-CoV-2 RNA (KEMI) Negative (Negative) White Blood Count 3.5 x10^3/uL (4.0-11.0) Red Blood Count 3.80 x10^6/uL (4.30-5.70) Hemoglobin 12.1 g/dL (13.0-17.5) Hematocrit 34.7 % (39.0-53.0) Mean Corpuscular Volume 91 fL (79-100) Mean Corpuscular Hemoglobin 32 pg (25-35) Mean Corpuscular Hemoglobin Concent 35 g/dL (31-37) Red Cell Distribution Width 13.3 % (11.5-14.5) Platelet Count 193 x10^3/uL (140-400) Neutrophils (%) (Auto) 51 % (31-73) Lymphocytes (%) (Auto) 36 % (24-48) Monocytes (%) (Auto) 10 % (0-9) Eosinophils (%) (Auto) 2 % (0-3) Basophils (%) (Auto) 1 % (0-3) Neutrophils # (Auto) 1.8 x10^3/uL (1.8-7.7) Lymphocytes # (Auto) 1.3 x10^3/uL (1.0-4.8) Monocytes # (Auto) 0.4 x10^3/uL (0.0-1.1) Eosinophils # (Auto) 0.1 x10^3/uL (0.0-0.7) Basophils # (Auto) 0.0 x10^3/uL (0.0-0.2) Sodium Level 141 mmol/L (136-145) Potassium Level 3.8 mmol/L (3.5-5.1) Chloride Level 106 mmol/L (98-107) Carbon Dioxide Level 29 mmol/L (21-32) Anion Gap 6 (6-14) Blood Urea Nitrogen 12 mg/dL (8-26) Creatinine 1.2 mg/dL (0.7-1.3) Estimated GFR (Cockcroft-Gault) 72.4 Glucose Level 77 mg/dL (70-99) Calcium Level 8.5 mg/dL (8.5-10.1) Magnesium Level 1.8 mg/dL (1.8-2.4) Medications Current Medications Amlodipine Besylate (Norvasc) 5 mg DAILY PO Last administered on 10/31/20at 08:24; Start 10/30/20 at 09:00 Aspirin (Ecotrin) 81 mg DAILY PO Last administered on 10/31/20at 08:24; Start 10/30/20 at 09:00 Clopidogrel Bisulfate (Plavix) 75 mg DAILY PO Last administered on 10/31/20at 08:25; Start 10/30/20 at 09:00 Hydrochlorothiazide (Hydrodiuril) 25 mg DAILY PO ; Start 10/30/20 at 09:00; Stop 10/29/20 at 19:09; Status DC Lisinopril (Prinivil) 40 mg DAILY PO Last administered on 10/31/20at 08:25; Start 10/30/20 at 09:00 Potassium Chloride (Klor-Con) 20 meq DAILY PO Last administered on 10/31/20at 08:24; Start 10/30/20 at 09:00 Vitals/I & O Vital Sign - Last 24 Hours 10/30/20 10/30/20 10/30/20 10/30/20 11:00 15:00 17:54 19:00 Temp 98.0 97.3 98.0 98.0 97.3 98.0 Pulse 66 69 69 74 Resp 18 18 18 B/P (MAP) 131/78 (95) 122/71 (88) 122/71 145/84 (104) Pulse Ox 95 98 99 O2 Delivery Room Air Room Air Room Air 10/30/20 10/30/20 10/31/20 10/31/20 19:30 23:00 03:00 07:00 Temp 98.1 97.8 97.6 98.1 97.8 97.6 Pulse 70 67 75 Resp 18 18 16 B/P (MAP) 137/78 (97) 143/75 (97) 140/80 (100) Pulse Ox 98 96 96 O2 Delivery Room Air Room Air Room Air Room Air 10/31/20 10/31/20 10/31/20 08:24 08:25 08:25 Pulse 75 75 75 B/P (MAP) 140/80 140/80 140/80 Intake and Output 10/30/20 10/30/20 10/31/20 15:00 23:00 07:00 Output Total 250 ml 500 ml Balance -250 ml -500 ml Justifications for Admission Other Justification ZENA AUSTIN MD Oct 31, 2020 09:00
[2020-10-31 11:00] VITALS: BP 114/68
--- NOTE | 2020-10-31 11:00 | CONS ---
DATE OF CONSULTATION: 10/31/2020 ATTENDING PHYSICIAN: Concetta Tee MD REASON FOR CONSULTATION: The patient was seen at the request of Dr. Tee for rehab evaluation. HISTORY OF PRESENT ILLNESS: This is a 70-year-old right-handed male known to me, admitted through the emergency room on 10/30/2020 with frequent falls. The patient with known old cerebrovascular accident with good return of motor function, hypertension, hyperlipidemia, coronary artery disease, apparently went to [place] with his brother to see his son and since then he is getting weaker. He apparently had 3 falls in the last 2 weeks. He falls often with position change and lightheaded as per family and falls when he is trying to stand up. He had one episode of head trauma. No history of loss of consciousness. The patient had CT scan of the brain, which failed to reveal any acute abnormalities. The patient denies any pain in his neck or back or in his extremities. The patient denies any trouble with his bowel or bladder control or swallowing or speech. He denies any headache. He denies any dizziness while up. Nursing staff checked for orthostatic hypotension and no evidence of orthostatic hypotension was noted. PHYSICAL EXAMINATION: GENERAL: Today revealed a middle-aged male. He is alert, oriented to time, place, person and circumstance, follows commands appropriately. NEUROLOGIC: Moves all 4 extremities voluntarily where he had 4+/5 grade muscle strength and deep tendon reflexes are exaggerated bilaterally. The patient had equal perception of touch and pinprick sensation bilaterally. The patient requires minimal assistance with bed mobility and transfers. Once up, he walks with somewhat wide-based gait using a roller walker. He does not use safety techniques while up, especially trying to turn and when he is standing up straight, he loses balance and falls down while trying to lock his bedside recliner. He is standing with a walker close to the door. He slowly came on his buttocks without any specific injury and he scooted down to the chair and got up, holding on the chair with assistance. No tenderness to palpation over cervical, thoracic or lumbar spine area and he had painful range of motion of all four extremity joints. His skin is intact at this time. ASSESSMENT: A middle-aged male with frequent falls, old cerebrovascular accident without any residual deficits, hypertension, hyperlipidemia, coronary artery disease, some degree of hyperreflexia in his lower extremities, but he denies any neck or upper back or lower back pain. To think about, he may be having some cervical or thoracic spinal stenosis. RECOMMENDATIONS: He is going to fall. He needs to learn how to fall down safely and get back up and his brother needs to keep reminding him how to use the walker properly. He should not be standing up straight, which makes him lose balance and fall. Also, he needs to be bending over onto the walker rather than walking straight into the walker to help with his balance. Agree with the plans for care home care unit transfer, but specifically would need to train his brother how to remind him to use proper techniques while he is up walking. Dr. Tee, I appreciate asking me to participate in the care of this interesting patient. I will be glad to see him for followup with you on as-needed basis. JACLYN US: Julia TID: [id number]
[2020-10-31 15:00] VITALS: BP 114/61
[2020-10-31 19:00] VITALS: BP 147/75
[2020-10-31] MEDS: ATORVASTATIN CALCIUM 40 MG TABLET. PO SCH (20:05)
[2020-10-31] MEDS: LATANOPROST 0.005% OPHTH SOLUTION 2.5ML BOTTLE. OU SCH (20:05)
[2020-10-31 23:00] VITALS: BP 135/77
[2020-11-01] VITALS (7 sets, daily range): BP systolic 101–129; BP diastolic 54–80
--- NOTE | 2020-11-01 08:54 | PDOC ---
PROGRESS NOTES Date of Service: DATE: 11/01/20 TIME: 08:51 Subjective Subjective no new problems, waiting to go to SNU. Objective Objective Vital Signs Date Time Temp Pulse Resp B/P (MAP) Pulse Ox O2 Delivery O2 Flow Rate FiO2 11/01/20 07:15 98.1 75 16 126/72 (90) 93 Room Air 98.1 Intake and Output 11/01/20 07:00 Intake Total 550 ml Output Total 950 ml Balance -400 ml Intake Oral 550 ml Output Urine Total 950 ml Physical Exam Abdomen: Soft Heart: Normal S1, Normal S2 Extremities: No clubbing General: Alert HEENT: Atraumatic Lungs: Clear to auscultation MUSCULOSKELETAL: No swelling, Abnormal exam of left Neck: No JVD Neuro: Normal speech Psych/Mental Status: Mental status NL Skin: Other (small skin breakdown , stge 1 glutel .see picture.) Diagnosis Problem List Problems Medical Problems: (1) Failure to thrive in adult Status: Acute (2) Falls frequently Status: Acute (3) Frequent falls Status: Acute (4) Orthostatic lightheadedness Status: Acute Assessment Assessment Problems Medical Problems: (1) Failure to thrive in adult Status: Acute (2) Falls frequently Status: Acute (3) Frequent falls Status: Acute (4) Orthostatic lightheadedness Status: Acute IMPRESSION: 1. Frequent falls. 2. Dizziness, likely due to orthostatic hypotension and hypokalemia. 3. Hypokalemia. 4. Multiple wounds. 5. Old cerebrovascular accident. 6. Hypertension. 7. Coronary artery disease. 8.small skin break down gluteal ,stage 1, POA Plan: no new problems SNU screen, transfer today. d/c iv fluids cr 1.2 down from 1.5 covid screen -ve pt/ot/rehab Plan Plan of Care Problems Medical Problems: (1) Failure to thrive in adult Status: Acute (2) Falls frequently Status: Acute (3) Frequent falls Status: Acute (4) Orthostatic lightheadedness Status: Acute Comment Review of Relevant I have reviewed the following items betty (where applicable) has been applied. Vitals/I & O Vital Sign - Last 24 Hours 10/31/20 10/31/20 10/31/20 10/31/20 11:00 15:00 18:09 19:00 Temp 97.7 97.6 97.6 97.7 97.6 97.6 Pulse 73 70 70 73 Resp 16 16 16 B/P (MAP) 114/68 (83) 114/61 (78) 114/61 147/75 (99) Pulse Ox 98 99 96 O2 Delivery Room Air Room Air 10/31/20 10/31/20 11/01/20 11/01/20 20:00 23:00 03:00 07:15 Temp 98.3 98.4 98.1 98.3 98.4 98.1 Pulse 71 70 75 Resp 18 20 16 B/P (MAP) 135/77 (96) 129/74 (92) 126/72 (90) Pulse Ox 96 95 93 O2 Delivery Room Air Room Air Intake and Output 10/31/20 10/31/20 11/01/20 15:00 23:00 07:00 Intake Total 550 ml Output Total 150 ml 200 ml 600 ml Balance -150 ml 350 ml -600 ml Justifications for Admission Other Justification ZENA AUSTIN MD Nov 01, 2020 08:53
[2020-11-01] MEDS ORDERED: HYDR-2761 PO (08:56)
--- NOTE | 2020-11-01 08:58 | SNU/HH DC ---
DISCHARGE ORDERS DISCHARGE INFORMATION: DISCHARGE DATE: Nov 01, 2020 FINAL DIAGNOSIS Problems Medical Problems: (1) Failure to thrive in adult Status: Acute (2) Falls frequently Status: Acute (3) Frequent falls Status: Acute (4) Orthostatic lightheadedness Status: Acute CONDITION ON DISCHARGE: Stable CODE STATUS: Code Status: Full HALFWAY: SNF STAY <30 DAYS: Yes HOSPICE: HOSPICE: No HOSPICE EVAL & TREAT: No LTAC: ADMIT TO LTAC: No POST DISCHARGE ORDERS: ACTIVITY ORDERS: Resume previous activity WEIGHT BEARING STATUS: No restrictions DIET AFTER DISCHARGE: Low Sodium 2 gm WOUND/INCISION CARE: Change dressing CHECKS AFTER DISCHARGE: CHECKS AFTER DISCHARGE: Check blood press - daily FOLLOW-UP: LAB ORDERS FOR FOLLOW-UP: bmp weekly TREATMENT/EQUIPMENT ORDERS: ADAPTIVE EQUIPMENT NEEDED: Platform walker Physical Therapy For: Evalulation/Treatment Occupational Therapy For: Evaluation/Treatment DISCHARGE MEDICATIONS: Home Meds Active Scripts Hydrocodone Bit/Acetaminophen (HYDROCODONE-APAP 5-325 ) 1 Tab Tablet, 1 TAB PO PRN Q6HRS PRN for MODERATE PAIN 4-6 for 7 Days, TAB Prov:ZENA AUSTIN MD 11/01/20 Reported Medications Latanoprost (LATANOPROST) 2.5 Ml Drops, 1 DROP EACHEYE QHS, #7.5 ML 3 Refills 12/30/15 Amlodipine Besylate (NORVASC) 5 Mg Tablet, 1 TAB PO DAILY, #30 TAB 5 Refills 12/29/15 Aspirin (ASPIR 81) 81 Mg Tablet.dr, 1 TAB PO DAILY, #30 TAB 5 Refills 12/29/15 Atorvastatin Calcium (LIPITOR) 40 Mg Tablet, 1 TAB PO QHS, #90 TAB 1 Refill 12/29/15 Carvedilol (COREG) 25 Mg Tablet, 1 TAB PO BID, #60 TAB 5 Refills 12/29/15 Clopidogrel Bisulfate (CLOPIDOGREL) 75 Mg Tablet, 1 TAB PO DAILY, #90 TAB 1 Refill 12/29/15 Lisinopril (LISINOPRIL) 40 Mg Tablet, 1 TAB PO DAILY, #30 TAB 5 Refills 12/29/15 Discontinued Reported Medications Hydrochlorothiazide (HYDROCHLOROTHIAZIDE TABLET ) 25 Mg Tablet, 1 TAB PO DAILY, #30 TAB 5 Refills 12/29/15 Potassium Chloride (KLOR-CON M20) 20 Meq Tab.er.prt, 1 TAB PO DAILY, #90 TAB 1 Refill 12/29/15 ZENA AUSTIN MD Nov 01, 2020 08:58
[2020-11-01] MEDS: ASPIRIN ENTERIC COATED 81 MG TABLET.DR. PO SCH (09:06)
[2020-11-01] MEDS: CLOPIDOGREL BISULFATE 75 MG TABLET PO SCH (09:07)
[2020-11-01] MEDS: CARVEDILOL 12.5 MG TABLET. PO SCH (09:08)
[2020-11-01] MEDS: LISINOPRIL 20 MG TABLET PO SCH (09:08)
--- NOTE | 2020-11-01 09:37 | PDOC ---
PROGRESS NOTES Date of Service DATE: 11/01/20 TIME: 09:33 Subjective Subjective No new complaints. Objective Objective Vital Signs Date Time Temp Pulse Resp B/P (MAP) Pulse Ox O2 Delivery O2 Flow Rate FiO2 11/01/20 09:08 75 126/72 11/01/20 07:15 98.1 16 93 Room Air 98.1 Intake and Output 11/01/20 07:00 Intake Total 550 ml Output Total 950 ml Balance -400 ml Intake Oral 550 ml Output Urine Total 950 ml Physical Exam Physical Exam He is alert,sitting at edge of bed and no change with his neurological status. He apparently had a wheel chair for use at home. Assessment Assessment Problems Medical Problems: (1) Failure to thrive in adult Status: Acute (2) Falls frequently Status: Acute (3) Frequent falls Status: Acute (4) Orthostatic lightheadedness Status: Acute Plan Plan of Care Agree with plans for continued physical andoccupational therapy follow up and transfer to SNF or rehab unit with emphasis on safety with mobility at wheel cahir level as he is going to fall when he gets up without close standby supervision. Comment Review of Relevant I have reviewed the following items betty (where applicable) has been applied. Labs Laboratory Tests Test 10/30/20 09:58 10/31/20 05:40 SARS-CoV-2 RNA (KEMI) Negative (Negative) White Blood Count 3.5 x10^3/uL (4.0-11.0) Red Blood Count 3.80 x10^6/uL (4.30-5.70) Hemoglobin 12.1 g/dL (13.0-17.5) Hematocrit 34.7 % (39.0-53.0) Mean Corpuscular Volume 91 fL (79-100) Mean Corpuscular Hemoglobin 32 pg (25-35) Mean Corpuscular Hemoglobin Concent 35 g/dL (31-37) Red Cell Distribution Width 13.3 % (11.5-14.5) Platelet Count 193 x10^3/uL (140-400) Neutrophils (%) (Auto) 51 % (31-73) Lymphocytes (%) (Auto) 36 % (24-48) Monocytes (%) (Auto) 10 % (0-9) Eosinophils (%) (Auto) 2 % (0-3) Basophils (%) (Auto) 1 % (0-3) Neutrophils # (Auto) 1.8 x10^3/uL (1.8-7.7) Lymphocytes # (Auto) 1.3 x10^3/uL (1.0-4.8) Monocytes # (Auto) 0.4 x10^3/uL (0.0-1.1) Eosinophils # (Auto) 0.1 x10^3/uL (0.0-0.7) Basophils # (Auto) 0.0 x10^3/uL (0.0-0.2) Sodium Level 141 mmol/L (136-145) Potassium Level 3.8 mmol/L (3.5-5.1) Chloride Level 106 mmol/L (98-107) Carbon Dioxide Level 29 mmol/L (21-32) Anion Gap 6 (6-14) Blood Urea Nitrogen 12 mg/dL (8-26) Creatinine 1.2 mg/dL (0.7-1.3) Estimated GFR (Cockcroft-Gault) 72.4 Glucose Level 77 mg/dL (70-99) Calcium Level 8.5 mg/dL (8.5-10.1) Magnesium Level 1.8 mg/dL (1.8-2.4) Medications Current Medications Potassium Chloride/Sodium Chloride 1,000 ml @ 75 mls/hr [id number] IV Last administered on 10/30/20at 05:30; Start 10/29/20 at 16:00; Stop 10/31/20 at 16:00; Status DC Amlodipine Besylate (Norvasc) 5 mg DAILY PO Last administered on 11/01/20at 09:07; Start 10/30/20 at 09:00 Aspirin (Ecotrin) 81 mg DAILY PO Last administered on 11/01/20at 09:06; Start 10/30/20 at 09:00 Atorvastatin Calcium (Lipitor) 40 mg QHS PO Last administered on 10/31/20at 20:05; Start 10/29/20 at 21:00 Clopidogrel Bisulfate (Plavix) 75 mg DAILY PO Last administered on 11/01/20at 09:07; Start 10/30/20 at 09:00 Hydrochlorothiazide (Hydrodiuril) 25 mg DAILY PO ; Start 10/30/20 at 09:00; Stop 10/29/20 at 19:09; Status DC Latanoprost (Xalatan) 1 drop QHS OU Last administered on 10/31/20at 20:05; Start 10/29/20 at 21:00 Lisinopril (Prinivil) 40 mg DAILY PO Last administered on 11/01/20at 09:08; Start 10/30/20 at 09:00 Potassium Chloride (Klor-Con) 20 meq DAILY PO Last administered on 10/31/20at 08:24; Start 10/30/20 at 09:00; Stop 10/31/20 at 09:02; Status DC Carvedilol (Coreg) 25 mg BIDWMEALS PO Last administered on 11/01/20at 09:08; Start 10/29/20 at 17:00 Acetaminophen/ Hydrocodone Bitart (Lortab 5/325) 1 tab PRN Q6HRS PRN PO MODER ATE PAIN 4-6 Last administered on 10/30/20at 03:17; Start 10/30/20 at 03:15 Acetaminophen (Tylenol) 650 mg PRN Q6HRS PRN PO MILD PAIN / TEMP > 100.3'F; Start 10/30/20 at 08:45 Active Scripts Active Hydrocodone-Apap 5-325 (Hydrocodone Bit/Acetaminophen) 1 Tab Tablet 1 Tab PO PRN Q6HRS PRN 7 Days Reported Latanoprost 2.5 Ml Drops 1 Drop EACHEYE QHS Norvasc (Amlodipine Besylate) 5 Mg Tablet 1 Tab PO DAILY Aspir 81 (Aspirin) 81 Mg Tablet.dr 1 Tab PO DAILY Lipitor (Atorvastatin Calcium) 40 Mg Tablet 1 Tab PO QHS Coreg (Carvedilol) 25 Mg Tablet 1 Tab PO BID Clopidogrel (Clopidogrel Bisulfate) 75 Mg Tablet 1 Tab PO DAILY Lisinopril 40 Mg Tablet 1 Tab PO DAILY Vitals/I & O Vital Sign - Last 24 Hours 10/31/20 10/31/20 10/31/20 10/31/20 11:00 15:00 18:09 19:00 Temp 97.7 97.6 97.6 97.7 97.6 97.6 Pulse 73 70 70 73 Resp 16 16 16 B/P (MAP) 114/68 (83) 114/61 (78) 114/61 147/75 (99) Pulse Ox 98 99 96 O2 Delivery Room Air Room Air 9/10/31/20 11/01/20 11/01/20 20:00 23:00 03:00 07:15 Temp 98.3 98.4 98.1 98.3 98.4 98.1 Pulse 71 70 75 Resp 18 20 16 B/P (MAP) 135/77 (96) 129/74 (92) 126/72 (90) Pulse Ox 96 95 93 O2 Delivery Room Air Room Air 11/01/20 11/01/20 11/01/20 09:07 09:08 09:08 Pulse 75 75 75 B/P (MAP) 126/72 126/72 126/72 Intake and Output 10/31/20 10/31/20 11/01/20 15:00 23:00 07:00 Intake Total 550 ml Output Total 150 ml 200 ml 600 ml Balance -150 ml 350 ml -600 ml Justifications for Admission Other Justification RIZWANA LEDESMA MD Nov 01, 2020 09:37
--- NOTE | 2020-11-02 08:50 | PDOC ---
Provider Note Date of Service: DATE: 11/02/20 TIME: 08:49 Provider Note Discharge summary dictated.#[id number]. Justifications for Admission Other Justification ZENA AUSTIN MD Nov 02, 2020 08:50
--- NOTE | 2020-11-02 16:45 | DS ---
DATE OF DISCHARGE: 11/01/2020 REASON FOR ADMISSION TO THE HOSPITAL: Generalized weakness, hypokalemia, mild renal insufficiency with vasomotor etiology. CONSULTATIONS: Dr. Castañeda. PROCEDURES DONE: CT of the head. HOSPITAL COURSE: The patient is a 70-year-old male with history of previous stroke. The patient had been out of town, he went to [place] for a couple of weeks and came back here and was weak and has been falling. The patient was brought to the hospital. CT head was negative. His creatinine was high at 1.5, was given IV fluids. Creatinine came down to 1.2 and his potassium was low at 3.3. The patient was given potassium supplements, IV fluids. The patient was taking hydrochlorothiazide, which was stopped. The patient has some stage 1 skin sores in the gluteal area present admission, and was seen by the wound care nurse. The patient was seen by PT, OT, Dr. Castañeda, of Rehab. It was felt that he needs to go to intermediate. The patient was discharged to SNU. FINAL DIAGNOSES: 1. Generalized weakness and multiple falls. 2. Acute renal insufficiency secondary to vasomotor, improved with hydration and holding hydrochlorothiazide. 3. History of previous stroke, left hemiparesis, on Plavix. 4. Hypertension. 5. Hyperlipidemia. 6. Small pressure ulcer of the gluteal area, stage 1, present on admission, 1 cm. DISPOSITION: To intermediate. I will see him back for additional medications. We will monitor electrolytes at the long term once a week. ROBERTA/FABIOLA DR: Niyah TID: [id number]
== END 2020-11-01 16:30 | DRG 640 ==
LOC: ER 11:16 → 6 SOUTH 12:56 → 4 NORTH 13:50
PROVIDERS: ADMIT Internal Medicine; ATTEND Internal Medicine
DX: E87.6 Hypokalemia (principal); N17.0 Acute kidney failure with tubular necrosis; I69.354 Hemiplegia and hemiparesis following cerebral infarction affecting left non-dominant side; N28.9 Disorder of kidney and ureter, unspecified; E78.00 Pure hypercholesterolemia, unspecified; E78.5 Hyperlipidemia, unspecified; I25.10 Atherosclerotic heart disease of native coronary artery without angina pectoris; R62.7 Adult failure to thrive; S09.90XA Unspecified injury of head, initial encounter; Z20.822 Contact with and (suspected) exposure to COVID-19; L89.301 Pressure ulcer of unspecified buttock, stage 1; I11.9 Hypertensive heart disease without heart failure; W18.30XA Fall on same level, unspecified, initial encounter; Y93.89 Activity, other specified; Y92.89 Other specified places as the place of occurrence of the external cause; Y99.8 Other external cause status; Z68.27 Body mass index [BMI] 27.0-27.9, adult
CPT/HCPCS: 36415; 70450; 71045; 80048; 80053; 83735; 84484; 85025; 93005; J3480; U0003; U0005; 99285-25; G0378

== ENCOUNTER 2020-12-08 14:21 | Emergency (ER) | payer MEDICARE ==
[~2020-12-08] VITALS: Ht 177.8 cm; Wt 68.1 kg
[~2020-12-08 14:21] MED LIST changes: +HYDR-2761 PO
[2020-12-08] MEDS ORDERED: ACETAMINOPHEN 500 MG TABLET PO ONE (15:15)
--- NOTE | 2020-12-08 15:33 | RAD ---
STUDY: US DPLX VENOUS EXTREMITY LOWER LT INDICATION: Left lower leg pain. TECHNIQUE: Color-flow and pulsed wave duplex ultrasound with compression of venous structures of the left lower extremity. COMPARISON: None Available. FINDINGS: Duplex ultrasound with compression of the deep venous structures of the left lower extremity from the common femoral vein through the popliteal vein is negative for DVT. The posterior tibial and peroneal veins are segmentally visualized and patent where seen. Normal veno us waveforms and augmentation are noted throughout. Incidental note of cobblestoning of the subcutaneous fat in the leg compatible with superficial edema . IMPRESSION: No deep venous thrombosis of the left lower extremity. Electronically signed by: Yoni Thompson MD (12/08/2020 3:31 PM) [id number]
--- NOTE | 2020-12-08 16:20 | PHYS DOC ---
Past Medical History Past Medical History: CAD, CVA, High Cholesterol, Heart Disease, Hypertension, Stroke Additional Past Medical Histor: stroke 10years ago with LEFT sided deficit. Past Surgical History: No Surgical History Smoking Status: Never Smoker Alcohol Use: None Drug Use: None General Adult EDM: Chief Complaint: LOWER EXT PAIN HPI: HPI: Patient is a 70 year old male who presents with report of 3 to 4 weeks of left lower leg pain. He denies any injury or trauma. He denies hip or thigh or knee pain. He denies any changes today. He denies numbness or tingling. The left lower extremity is slightly more swollen, which is apparently baseline for him. No skin redness or open wounds. He denies chest pain or dyspnea. He denies fevers or chills. He denies abdominal pain, nausea vomiting. He currently lives with family, but he was recently approved to go to a detention facility. [employer] called to send him to the ER for clearance and examination of his left lower extremity before proceeding to his care facility. Review of Systems: Review of Systems: Constitutional: Denies fever or chills. [] Eyes: Denies change in visual acuity. [] HENT: Denies nasal congestion or sore throat. [] Respiratory: Denies cough or shortness of breath. [] Cardiovascular: Denies chest pain or edema. [] GI: Denies abdominal pain, nausea, vomiting Musculoskeletal: Left lower extremity pain, which has been present for 3 to 4 weeks. Integument: Denies rash. [] Neurologic: Denies headache or dizziness. He has chronic weakness from prior CVA. No acute weakness or changes from baseline. Psychiatric: Denies depression or anxiety. [] Heart Score: C/O Chest Pain: No Risk Factors: Risk Factors: DM, Current or recent (<one month) smoker, HTN, HLP, family history of CAD, obesity. Risk Scores: Score 0 - 3: 2.5% MACE over next 6 weeks - Discharge Home Score 4 - 6: 20.3% MACE over next 6 weeks - Admit for Clinical Observation Score 7 - 10: 72.7% MACE over next 6 weeks - Early Invasive Strategies Current Medications: Current Medications Medications (Trade) Dose Ordered Sig/Shyla Start Time Stop Time Status Last Admin Dose Admin Acetaminophen (Tylenol) 1,000 mg 1X ONCE 12/08/20 15:15 12/08/20 15:16 DC 12/08/20 15:41 1,000 MG Allergies: Allergies: Allergies Coded Allergies Type Severity Reaction Last Updated Verified No Known Drug Allergies 12/29/15 No Physical Exam: PE: Constitutional: Well developed, well nourished, no acute distress, non-toxic appearance. [] HENT: Normocephalic, atraumatic, Eyes: Sclera are clear and anicteric [] Neck: Trachea midline, no tenderness Cardiovascular:Heart rate regular rhythm, +2 radial and dorsalis pedis pulses bilaterally Lungs & Thorax: Bilateral breath sounds clear to auscultation [] Abdomen: Bowel sounds normal, soft, no tenderness Skin: Warm, dry, no erythema, no rash. [] Back: No tenderness Extremities: I am unable to elicit any tenderness. There is bilateral lower extremity dependent edema, minimally more nonpitting edema of the left lower extremity. No calf tenderness. No warmth erythema. No deformity. No pain with passive range of motion of the left hip, thigh, knee, ankle or foot. Pelvis is stable. Neurologic: Alert and oriented X 3, he is conversant, speech is slightly slurred but baseline for him. No acute weakness noted. Psychologic: Affect normal, judgement normal, mood normal. He is pleasant and cooperative. Current Patient Data: Vital Signs: Vital Signs Date Time Temp Pulse Resp B/P (MAP) Pulse Ox O2 Delivery O2 Flow Rate FiO2 12/08/20 15:27 64 120/66 (84) 99 Room Air 12/08/20 14:21 97.9 20 97.9 EKG: EKG: [] Radiology/Procedures: Radiology/Procedures: IMAGING REPORT Signed PATIENT: JAYE NAVARRETE [facility]: [id number] : 1950 LOCATION: ER AGE: 70 SEX: M EXAM STATUS: PRE ER ORD. PHYSICIAN: MARY HERNANDEZ DO REASON: left lower leg pain PROCEDURE: VENOUS LOWER EXTREMITY LEFT STUDY: US DPLX VENOUS EXTREMITY LOWER LT INDICATION: Left lower leg pain. TECHNIQUE: Color-flow and pulsed wave duplex ultrasound with compression of venous structures of the left lower extremity. COMPARISON: None Available. FINDINGS: Duplex ultrasound with compression of the deep venous structures of the left lower extremity from the common femoral vein through the popliteal vein is negative for DVT. The posterior tibial and peroneal veins are segmentally visualized and patent where seen. Normal venous waveforms and augmentation are noted throughout. Incidental note of cobblestoning of the subcutaneous fat in the leg compatible with superficial edema. IMPRESSION: No deep venous thrombosis of the left lower extremity. Electronically signed by: Yoni Daniel MD (12/08/2020 3:31 PM) [id number] DICTATED and SIGNED BY: YONI DANIEL MD DATE: 12/08/20 [id number] 0 Course & Med Decision Making: Course & Med Decision Making Pertinent Labs and Imaging studies reviewed. (See chart for details) I spoke with Dr. Hagen, who is the patient's primary care physician. He faxed over an order for the patient to be sent to a detention facility, however he will not be able to be accepted at the facility until tomorrow. Therefore, the patient will go home with his family and will present for detention care tomorrow. He has no complaints. He requested Tylenol for pain, so this is given. No DVT noted on ultrasound. No reported trauma or injury. There is no exam findings would indicate any need for any further invasive exams or imaging at this time. Return precautions are given. Dragon Disclaimer: Dragon Disclaimer: This electronic medical record was generated, in whole or in part, using a voice recognition dictation system. Departure Departure Impression: Primary Impression: Pain of left lower extremity Disposition: HOME / SELF CARE / HOMELESS Condition: STABLE Referrals: ZENA AUSTIN MD (PCP) Patient Instructions: Leg Cramps Additional Instructions: Your ultrasound was negative for blood clot here today. Return to the ER for any severe pain, acute injury or trauma, redness, severe swelling, fever 100.4 or higher, shortness of breath, chest pain or any other concerns. You should be able to go to the healthcare resort tomorrow. Please discuss this further with your primary care physician, Dr. Austin. MARY HERNANDEZ DO Dec 08, 2020 16:20
[2020-12-08 17:27] VITALS: BP 131/73
== END 2020-12-08 18:25 | disposition home or self-care (01) ==
LOC: ER 14:21
DX: M79.662 Pain in left lower leg (principal); R22.42 Localized swelling, mass and lump, left lower limb; I25.10 Atherosclerotic heart disease of native coronary artery without angina pectoris; E78.00 Pure hypercholesterolemia, unspecified; I11.9 Hypertensive heart disease without heart failure; Z86.73 Personal history of transient ischemic attack (TIA), and cerebral infarction without residual deficits
CPT/HCPCS: 93971; 99285-25